=== PATIENT | male | born 1960 | race Caucasian/White ===

== ENCOUNTER 2018-03-27 13:34 | Inpatient (IN) | payer BC ==
[2018-03-27] MEDS ORDERED: DILTIAZEM DRIP BOLUS FROM BAG 1 MG SOLN IV ONE (14:02)
--- NOTE | 2018-03-27 14:07 | ED ---
General Adult HPI - General Chief complaint: Arrhythmia/Palpitations Stated complaint: AFIB Time Seen by Provider: 03/27/18 13:40 Source: patient, RN notes reviewed Mode of arrival: ambulatory Limitations: no limitations - History of Present Illness Initial comments: This is a 57-year-old male with past mental history significant for atrial fibrillation. Patient states in the past she's converted has not gone home on any medication and he has not been on any blood thinners. Patient states he only takes aspirin. Patient states a little bit after noon today he felt his heart start to race and he felt the same as atrial fibrillation. Patient gives all the time it didn't go away so he decided come to the emergency department. Patient denies any chest pain patient denies any difficulty breathing or shortness of breath. Patient denies any recent fever chills or cough. Patient denies abdominal pain patient denies nausea vomiting diarrhea. Patient denies any leg swelling or calf pain. - Related Data Home Medications Medication Instructions Recorded Confirmed Aspirin 325 mg PO HS 03/27/18 03/27/18 Ezetimibe/Simvastatin [Vytorin 1 tab PO HS 03/27/18 03/27/18 10-40 mg Tablet] Allergies Allergy/AdvReac Type Severity Reaction Status Date / Time No Known Allergies Allergy Verified 03/27/18 14:01 Review of Systems ROS Statement: Those systems with pertinent positive or pertinent negative responses have been documented in the HPI. ROS Other: All systems not noted in ROS Statement are negative. Past Medical History Past Medical History: Atrial Fibrillation, Hyperlipidemia History of Any Multi-Drug Resistant Organisms: None Reported Past Surgical History: Tonsillectomy Additional Past Surgical History / Comment(s): right hand surgery Past Psychological History: No Psychological Hx Reported Smoking Status: Never smoker Past Alcohol Use History: None Reported Past Drug Use History: None Reported General Exam - General Exam Comments Initial Comments: GENERAL: Patient is well-developed and well-nourished. Patient is nontoxic and well- hydrated and is in mild distress. ENT: Neck is soft and supple. No significant lymphadenopathy is noted. Oropharynx is clear. Moist mucous membranes. Neck has full range of motion without eliciting any pain. EYES: The sclera were anicteric and conjunctiva were pink and moist. Extraocular movements were intact and pupils were equal round and reactive to light. Eyelids were unremarkable. PULMONARY: Unlabored respirations. Good breath sounds bilaterally. No audible rales rhonchi or wheezing was noted. CARDIOVASCULAR: Patient has irregular rate and rhythm ABDOMEN: Soft and nontender with normal bowel sounds. No palpable organomegaly was noted. There is no palpable pulsatile mass. SKIN: Skin is clear with no lesions or rashes and otherwise unremarkable. NEUROLOGIC: Patient is alert and oriented x3. Cranial nerves II through XII are grossly intact. Motor and sensory are also intact. Normal speech, volume and content. Symmetrical smile. MUSCULOSKELETAL: Normal extremities with adequate strength and full range of motion. No lower extremity swelling or edema. No calf tenderness. LYMPHATICS: No significant lymphadenopathy is noted PSYCHIATRIC: Normal psychiatric evaluation. Limitations: no limitations Course Vital Signs 03/27/18 03/27/18 03/27/18 13:38 14:24 14:35 Temperature 98.6 F Pulse Rate 78 149 H 158 H Respiratory 16 20 18 Rate Blood Pressure 120/72 120/101 101/69 O2 Sat by Pulse 100 100 99 Oximetry 03/27/18 03/27/18 03/27/18 14:42 14:53 15:45 Temperature Pulse Rate 124 H 131 H 124 H Respiratory 22 22 18 Rate Blood Pressure 105/75 124/76 119/102 O2 Sat by Pulse 100 100 Oximetry Medical Decision Making - Medical Decision Making EKG shows atrial fibrillation with rapid ventricular results at 158 bpm QRS is 86 QT interval is 292 QTC is 473. No ST segment elevation or depression or T wave abnormalities are noted. Chest x-ray showed no acute abnormality. Patient was placed on Cardizem and was given heart rate did not come down initially. Patient was started on heparin as well. I spoke with Dr. ambrocio he agreed to admit the patient admitted the patient I wrote admitting orders I consult cardiology. I continue the heparin as well as the Cardizem drip on the floor. - Lab Data Result diagrams: 03/27/18 14:00 03/27/18 14:00 Lab Results 03/27/18 03/27/18 03/27/18 Range/Units 14:00 14:00 14:00 WBC 7.4 (3.8-10.6) k/uL RBC 5.34 (4.30-5.90) m/uL Hgb 15.8 (13.0-17.5) gm/dL Hct 46.6 (39.0-53.0) % MCV 87.2 (80.0-100.0) fL MCH 29.6 (25.0-35.0) pg MCHC 34.0 (31.0-37.0) g/dL RDW 13.0 (11.5-15.5) % Plt Count 237 (150-450) k/uL Neutrophils % 75 % Lymphocytes % 16 % Monocytes % 6 % Eosinophils % 1 % Basophils % 1 % Neutrophils # 5.6 (1.3-7.7) k/uL Lymphocytes # 1.2 (1.0-4.8) k/uL Monocytes # 0.5 (0-1.0) k/uL Eosinophils # 0.1 (0-0.7) k/uL Basophils # 0.0 (0-0.2) k/uL PT (9.0-12.0) sec INR (<1.2) APTT (22.0-30.0) sec Sodium 142 (137-145) mmol/L Potassium 4.3 (3.5-5.1) mmol/L Chloride 107 (98-107) mmol/L Carbon Dioxide 22 (22-30) mmol/L Anion Gap 13 mmol/L BUN 25 H (9-20) mg/dL Creatinine 1.00 (0.66-1.25) mg/dL Est GFR (CKD-EPI)AfAm >90 (>60 ml/min/1.73 sqM) Est GFR (CKD-EPI)NonAf 83 (>60 ml/min/1.73 sqM) Glucose 126 H (74-99) mg/dL Calcium 10.2 (8.4-10.2) mg/dL Magnesium 1.9 (1.6-2.3) mg/dL Total Bilirubin 1.1 (0.2-1.3) mg/dL AST 39 (17-59) U/L ALT 43 (21-72) U/L Alkaline Phosphatase 58 (38-126) U/L Total Creatine Kinase 161 (55-170) U/L CK-MB (CK-2) 1.7 (0.0-2.4) ng/mL CK-MB (CK-2) Rel Index 1.1 Troponin I <0.012 (0.000-0.034) ng/mL Total Protein 7.7 (6.3-8.2) g/dL Albumin 5.0 (3.5-5.0) g/dL TSH 3.600 (0.465-4.680) mIU/L Free T4 1.61 (0.78-2.19) ng/dL Urine Opiates Screen (NotDetected) Ur Oxycodone Screen (NotDetected) Urine Methadone Screen (NotDetected) Ur Propoxyphene Screen (NotDetected) Ur Barbiturates Screen (NotDetected) U Tricyclic Antidepress (NotDetected) Ur Phencyclidine Scrn (NotDetected) Ur Amphetamines Screen (NotDetected) U Methamphetamines Scrn (NotDetected) U Benzodiazepines Scrn (NotDetected) Urine Cocaine Screen (NotDetected) U Marijuana (THC) Screen (NotDetected) 03/27/18 03/27/18 Range/Units 14:00 15:12 WBC (3.8-10.6) k/uL RBC (4.30-5.90) m/uL Hgb (13.0-17.5) gm/dL Hct (39.0-53.0) % MCV (80.0-100.0) fL MCH (25.0-35.0) pg MCHC (31.0-37.0) g/dL RDW (11.5-15.5) % Plt Count (150-450) k/uL Neutrophils % % Lymphocytes % % Monocytes % % Eosinophils % % Basophils % % Neutrophils # (1.3-7.7) k/uL Lymphocytes # (1.0-4.8) k/uL Monocytes # (0-1.0) k/uL Eosinophils # (0-0.7) k/uL Basophils # (0-0.2) k/uL PT 10.7 (9.0-12.0) sec INR 1.0 (<1.2) APTT 26.5 (22.0-30.0) sec Sodium (137-145) mmol/L Potassium (3.5-5.1) mmol/L Chloride (98-107) mmol/L Carbon Dioxide (22-30) mmol/L Anion Gap mmol/L BUN (9-20) mg/dL Creatinine (0.66-1.25) mg/dL Est GFR (CKD-EPI)AfAm (>60 ml/min/1.73 sqM) Est GFR (CKD-EPI)NonAf (>60 ml/min/1.73 sqM) Glucose (74-99) mg/dL Calcium (8.4-10.2) mg/dL Magnesium (1.6-2.3) mg/dL Total Bilirubin (0.2-1.3) mg/dL AST (17-59) U/L ALT (21-72) U/L Alkaline Phosphatase (38-126) U/L Total Creatine Kinase (55-170) U/L CK-MB (CK-2) (0.0-2.4) ng/mL CK-MB (CK-2) Rel Index Troponin I (0.000-0.034) ng/mL Total Protein (6.3-8.2) g/dL Albumin (3.5-5.0) g/dL TSH (0.465-4.680) mIU/L Free T4 (0.78-2.19) ng/dL Urine Opiates Screen Not Detected (NotDetected) Ur Oxycodone Screen Not Detected (NotDetected) Urine Methadone Screen Not Detected (NotDetected) Ur Propoxyphene Screen Not Detected (NotDetected) Ur Barbiturates Screen Not Detected (NotDetected) U Tricyclic Antidepress Not Detected (NotDetected) Ur Phencyclidine Scrn Not Detected (NotDetected) Ur Amphetamines Screen Not Detected (NotDetected) U Methamphetamines Scrn Not Detected (NotDetected) U Benzodiazepines Scrn Not Detected (NotDetected) Urine Cocaine Screen Not Detected (NotDetected) U Marijuana (THC) Screen Not Detected (NotDetected) Critical Care Time Critical Care Time: Yes Total Critical Care Time: 35 Disposition Clinical Impression: Atrial fibrillation with rapid ventricular response Disposition: ADMITTED IP TO THIS HOSP Referrals: Fredrick Blakely DO [Primary Care Provider] - 1-2 days Time of Disposition: 15:48
[2018-03-27 14:29] LABS: Basophils % (A) 1 %; Eosinophils # (A) 0.1 k/uL (0-0.7); Eosinophils % (A) 1 %; HCT 46.6 % (39.0-53.0); HGB 15.8 gm/dL (13.0-17.5); Lymphocytes # (A) 1.2 k/uL (1.0-4.8); Lymphocytes % (A) 16 %; MCH 29.6 pg (25.0-35.0); MCV 87.2 fL (80.0-100.0); Mean Platelet Volume 7.8; Monocytes # (A) 0.5 k/uL (0-1.0); Monocytes % (A) 6 %; Neutrophils # (A) 5.6 k/uL (1.3-7.7); Neutrophils % (A) 75 %; Platelet Count 237 k/uL (150-450); RBC 5.34 m/uL (4.30-5.90); WBC 7.4 k/uL (3.8-10.6)
[2018-03-27] MEDS: DILTIAZEM 50 MG in SODIUM CHLORIDE 0.9% 40 ML IV SCH ×3 (14:36→23:28)
[2018-03-27 14:38] LABS: Partial Thromboplastin Time 26.5 sec (22.0-30.0); Prothrombin Time 10.7 sec (9.0-12.0)
[2018-03-27 14:41] LABS: ALT 43 U/L (21-72); AST 39 U/L (17-59); Alkaline Phosphatase 58 U/L (38-126); Anion Gap 13 mmol/L; Blood Urea Nitrogen 25 mg/dL (9-20); Calcium 10.2 mg/dL (8.4-10.2); Carbon Dioxide 22 mmol/L (22-30); Chloride 107 mmol/L (98-107); Glucose 126 mg/dL (74-99); Magnesium 1.9 mg/dL (1.6-2.3); Potassium 4.3 mmol/L (3.5-5.1); Sodium 142 mmol/L (137-145); Total Bilirubin 1.1 mg/dL (0.2-1.3); Total Protein 7.7 g/dL (6.3-8.2)
[2018-03-27 14:51] LABS: Creatine Kinase 161 U/L (55-170)
[2018-03-27 14:57] LABS: T4, Free (Free Thyroxine) 1.61 ng/dL (0.78-2.19)
[2018-03-27] MEDS ORDERED: SODIUM CHLORIDE 0.9% 500 ML 500 ML IV STA ×2 (14:57→15:58)
[2018-03-27 15:03] LABS: Creatine Kinase MB 1.7 ng/mL (0.0-2.4); Troponin I <0.012 ng/mL (0.000-0.034)
--- NOTE | 2018-03-27 15:25 | XR ---
EXAMINATION TYPE: XR chest 2V DATE OF EXAM: 03/27/2018 COMPARISON: 09/08/2011 HISTORY: Shortness of breath TECHNIQUE: Frontal and lateral views of the chest are obtained. FINDINGS: Scattered senescent parenchymal changes noted. Hyperinflation compatible with COPD. No evidence for infiltrate. No evidence for atelectasis. Heart size is stable. Mediastinal structures are stable and grossly unremarkable. No evidence for hilar prominence. Degenerative changes dorsal spine. IMPRESSION: 1. No evidence for acute pulmonary disease.
[2018-03-27 15:33] LABS: Amphetamine Screen,Urine Not Detected (NotDetected); Barbiturate Screen,Urine Not Detected (NotDetected); Benzodiazepines Screen,Urine Not Detected (NotDetected); Cocaine Screen,Urine Not Detected (NotDetected); Methadone Screen, Urine Not Detected (NotDetected); Opiate Screen,Urine Not Detected (NotDetected); Oxycodone Screen, Urine Not Detected (NotDetected); Phencyclidine Screen,Urine Not Detected (NotDetected); Tricyclic Antidepressant,Urine Not Detected (NotDetected); Urn Cannabinoid Scrn Not Detected (NotDetected)
[2018-03-27] MEDS ORDERED: HEPARIN SODIUM,PORCINE 5,000 UNIT/ML 1 ML VIAL IV ONE (15:45)
[2018-03-27] MEDS ORDERED: HEPARIN SOD,PORK IN 0.45% NACL 25,000 UNIT in 0.45% NACL 1 250ML.BAG IV SCH (15:45)
[2018-03-27] MEDS ORDERED: NITROGLYCERIN SL TABS 0.4 MG TAB SUBLINGUAL PRN (15:58)
[2018-03-27] MEDS: NITROGLYCERIN OINT 1 INCH/GM PACKET TOPICAL SCH ×2 (17:51→23:33)
[2018-03-27] MEDS: EZETIMIBE 10 MG TAB PO SCH ×2 (20:45→20:48)
[2018-03-27] MEDS: ATORVASTATIN 20 MG TAB PO SCH ×2 (20:45→20:47)
[2018-03-27] MEDS ORDERED: ASPIRIN 325 MG TAB PO SCH (21:00)
[2018-03-27] MEDS ORDERED: TEMAZEPAM 15 MG CAP PO PRN (22:21)
[2018-03-27] MEDS ORDERED: ALPRAZolam 0.25 MG TAB PO PRN (22:21)
[2018-03-27 22:39] LABS: Creatine Kinase 126 U/L (55-170)
[2018-03-27 22:53] LABS: Creatine Kinase MB 1.2 ng/mL (0.0-2.4); Troponin I <0.012 ng/mL (0.000-0.034)
--- NOTE | 2018-03-27 22:53 | HP ---
HISTORY AND PHYSICAL I am covering for Dr. Blakely. DATE OF SERVICE: 03/27/2018 CHIEF COMPLAINT: Palpitations and atrial fibrillation. HISTORY OF PRESENT ILLNESS: This 57-year-old gentleman with a past medical history of multiple medical problems, history of atrial fibrillation, hyperlipidemia, being followed by Dr. Blakely. The patient was complaining of having significant stress at home associated with taking care of her dad, currently the patient took out the trash and subsequently patient had palpitation, weakness, and the patient came to [facility] and the patient was admitted to the hospital for further evaluation and treatment. The patient started on Cardizem and heparin. Patient admitted for further evaluation and treatment. Previously the patient had 2 episodes of atrial fibrillation, both reverted to normal sinus rhythm within 14 hours according to him. There is no history of chest pain, headache, loss of consciousness or seizures at this time. PAST MEDICAL HISTORY: History of atrial ablation, hyperlipidemia. Previous sepsis episodes are in 2010 and 2011. MEDICATIONS: Home medications were aspirin 320 mg q.h.s. and Vytorin 10/40 p.o. q.h.s. ALLERGIES: None. FAMILY HISTORY: History of CAD, CVA/TIA, hypertension, myocardial infarction, CABG. SOCIAL HISTORY: No history of smoking. No history of alcohol. REVIEW OF SYSTEMS: ENT: No diminished hearing or vision. CARDIOVASCULAR: As mentioned above. RESPIRATORY: As mentioned earlier. GI: No nausea or vomiting. : No dysuria. NERVOUS SYSTEM: No numbness or weakness. ALLERGY/IMMUNOLOGY: No history of asthma or hayfever. MUSCULOSKELETAL: As mentioned earlier. HEMATOLOGY/ONCOLOGY: No history of anemia. ENDOCRINE: No history of diabetes or hypothyroidism. CONSTITUTIONAL: As mentioned earlier. Dermatology: Negative. Rheumatology: Negative. Psychiatry: As mentioned earlier. PHYSICAL EXAMINATION: Alert oriented x3. Pulse is 140. Irregular. Blood pressure 135/83, respiratory 20, temperature 98 degrees, pulse ox 98% on 2 L. HEENT: Conjunctivae normal. Oral mucosa moist. Neck is no jugular venous distention. No carotid bruit. No lymph node enlargement. Cardiovascular: S1, S2 irregular. No murmurs. No thrills. RESPIRATORY: Breath sounds diminished in the bases. No rhonchi. No crackles. ABDOMEN: Soft, nontender. No mass palpable. LEGS: No edema. No swelling. NERVOUS SYSTEM: Higher functions as mentioned. Moves all 4 limbs. No focal motor or sensory deficits. Lymphatics: No lymph nodes palpable in the neck, axillae or groin. SKIN: No ulcer, no rash or bleeding. LAB STUDIES: WBC 11.7, hemoglobin 15.8, sodium 142, potassium 4.3, glucose 126. ASSESSMENT: 1. Paroxysmal atrial fibrillation with fast ventricular rate. 2. History of atrial fibrillation. 3. Increased random blood sugar. 4. History of hyperlipidemia. RECOMMENDATIONS AND DISCUSSION: In this 57-year-old gentleman who presented with multiple complex medical issues, we will monitor the patient closely. Continue the current medications, Cardizem drip and heparin drip. Resume the home medications. Also recommend cardiology evaluation, 2D echo with Doppler. TSH and free T4 is normal. Prognosis guarded because of multiple complex medical issues. Symptomatic treatment also provided. A copy being forwarded to Dr. Blakely who is the primary physician. MMODL / IJN: [id number] /
[2018-03-27 23:45] LABS: Appearance,Urine Clear (Clear); Bilirubin,Urine Negative (Negative); Blood,Urine Negative (Negative); Color,Urine Yellow; Glucose,Urine (UA) Negative (Negative); Ketones,Urine Negative (Negative); Leukocyte Esterase,Urine Negative (Negative); Nitrite,Urine Negative (Negative); PH, Urine 5.5 (5.0-8.0); Protein,Urine Negative (Negative); Specific Gravity,Urine 1.017 (1.001-1.035); Urobilinogen,Urine <2.0 mg/dL (<2.0)
[2018-03-28 02:27] LABS: Creatine Kinase 121 U/L (55-170)
[2018-03-28 02:40] LABS: Creatine Kinase MB 1.1 ng/mL (0.0-2.4); Troponin I <0.012 ng/mL (0.000-0.034)
[2018-03-28] MEDS: NITROGLYCERIN OINT 1 INCH/GM PACKET TOPICAL SCH ×2 (05:15→12:59)
[2018-03-28 05:55] LABS: Basophils # (A) 0.1 k/uL (0-0.2); Basophils % (A) 1 %; Eosinophils # (A) 0.1 k/uL (0-0.7); Eosinophils % (A) 2 %; HCT 41.7 % (39.0-53.0); HGB 13.5 gm/dL (13.0-17.5); Lymphocytes # (A) 1.7 k/uL (1.0-4.8); Lymphocytes % (A) 28 %; MCH 28.7 pg (25.0-35.0); MCHC 32.3 g/dL (31.0-37.0); Mean Platelet Volume 7.4; Monocytes # (A) 0.4 k/uL (0-1.0); Monocytes % (A) 6 %; Neutrophils # (A) 3.7 k/uL (1.3-7.7); Neutrophils % (A) 61 %; Platelet Count 213 k/uL (150-450); RBC 4.69 m/uL (4.30-5.90); RDW 13.1 % (11.5-15.5)
[2018-03-28 06:06] LABS: Anion Gap 7 mmol/L; Blood Urea Nitrogen 21 mg/dL (9-20); Calcium 9.3 mg/dL (8.4-10.2); Carbon Dioxide 27 mmol/L (22-30); Chloride 109 mmol/L (98-107); Cholesterol 119 mg/dL (<200); Glucose 86 mg/dL (74-99); HDL Cholesterol 42 mg/dL (40-60); LDL Cholesterol,Calculated 66 mg/dL (0-99); Potassium 4.2 mmol/L (3.5-5.1); Sodium 143 mmol/L (137-145); Triglycerides 53 mg/dL (<150)
[2018-03-28] MEDS ORDERED: PANTOPRAZOLE 40 MG TABLET PO SCH (07:30)
[2018-03-28] MEDS ORDERED: ASPIRIN 325 MG TAB PO SCH (09:00)
[2018-03-28 09:03] VITALS: RESP 18
[2018-03-28 11:52] VITALS: BP 118/69; PULSE 73; TEMP 97.9
--- NOTE | 2018-03-28 12:26 | P.CRDCN ---
History of Present Illness Consult date: 03/28/18 Requesting physician: Lawrence E Sheet Consult reason: atrial fibrillation Chief complaint: Palpitations History of present illness: This is a pleasant 57-year-old gentleman with history of 2 prior episodes of atrial fibrillation, no diabetes, no hypertension, hyperlipidemia, on Vytorin, he is a nonsmoker, presents to the hospital with symptoms of palpitations and feeling his heart racing. He states that he knew he was in atrial fibrillation because he has had these episodes twice in the past. Each time he converted with medications. According to the patient he's been under a significant amount of stress recently with his father. EKG on admission here showed atrial fibrillation with a rapid ventricular response, patient was initiated on IV Cardizem and IV heparin in the emergency room and his symptoms converted to normal sinus rhythm, he continues to be in normal sinus rhythm at the time of my examination. Chest x-ray does not reveal any evidence for acute pulmonary disease. Blood pressure 118/68, heart rate in the 70s, 99% on room air. White blood cell count 6.0, hemoglobin 13.5, platelet count 213. Sodium 143, potassium 4.2, BUN 21, creatinine 0.8. Troponins are negative 3 and the TSH is normal. Patient does follow with a brickmason at [facility]. Patient's home medications include 325 mg of aspirin and Vytorin. Past Medical History Past Medical History: Atrial Fibrillation, Hyperlipidemia Additional Past Medical History / Comment(s): fist episode of afib and again in History of Any Multi-Drug Resistant Organisms: None Reported Past Surgical History: Tonsillectomy Additional Past Surgical History / Comment(s): right hand surgery d/t dupuytrens , rt eye lid sx for chalazion (cyst) Past Anesthesia/Blood Transfusion Reactions: No Reported Reaction Additional Past Anesthesia/Blood Transfusion Reaction / Comment(s): jhas never recieved any blood transfusion Smoking Status: Never smoker - Past Family History Mother Family Medical History: Coronary Artery Disease (CAD), CVA/TIA, Hypertension, Myocardial Infarction ([place]) Father Family Medical History: Congestive Heart Failure (CHF), Coronary Artery Disease (CAD), Osteoarthritis (OA) Additional Family Medical History / Comment(s): cabg Medications and Allergies Home Medications Medication Instructions Recorded Confirmed Type Aspirin 325 mg PO HS 03/27/18 03/27/18 History Ezetimibe/Simvastatin [Vytorin 1 tab PO HS 03/27/18 03/27/18 History 10-40 mg Tablet] Allergies Allergy/AdvReac Type Severity Reaction Status Date / Time No Known Allergies Allergy Verified 03/27/18 14:01 Physical Exam Vitals: Vital Signs Temp Pulse Pulse Resp BP BP Pulse Ox 03/28/18 11:51 97.9 F 73 18 118/69 99 03/28/18 08:00 97.6 F 70 18 120/66 100 03/28/18 04:00 57 L 18 108/68 100 03/28/18 00:00 70 18 105/62 99 03/27/18 20:00 83 18 118/62 100 03/27/18 17:20 98 F 120 H 20 134/83 99 03/27/18 16:24 140 H 03/27/18 16:00 128 H 18 107/77 100 03/27/18 15:56 147 H 18 94/62 100 03/27/18 15:45 124 H 18 119/102 03/27/18 14:53 131 H 22 124/76 100 03/27/18 14:42 124 H 22 105/75 100 03/27/18 14:35 158 H 18 101/69 99 03/27/18 14:24 149 H 20 120/101 100 03/27/18 13:38 98.6 F 78 16 120/72 100 Intake and Output 03/27/18 03/28/18 03/28/18 22:59 06:59 14:59 Intake Total 65.333 44.25 240 Output Total 300 Balance 65.333 -255.75 240 Intake: Intake, IV Titration 65.333 44.25 Amount Diltiazem 50 mg In Sodium 44.25 Chloride 0.9% 40 ml @ 5 MG/HR 5 mls/hr IV .Q10H BRIANNE Rx#:[id number] Heparin Sod,Pork in 0.45% 65.333 NaCl 25,000 unit In 0.45 % NaCl 1 250ml.bag @ 9. 586 UNITS/KG/HR 10 mls/hr IV .Q24H BRIANNE Rx#: [id number] Oral 240 Output: Urine 300 Other: Voiding Method Toilet Toilet # Voids 1 1 Weight 106.6 kg PHYSICAL EXAMINATION: GENERAL: 57-year-old gentleman in no acute distress at the time of my examination HEENT: Head is atraumatic, normocephalic. Pupils equal, round. Sclera anicteric. Conjunctiva are clear. Mucous membranes of the mouth are moist. Neck is supple. There is no elevated jugular venous pressure. No carotid bruit is heard. HEART EXAMINATION: Heart S1, S2 normal. No murmur or gallop heard. CHEST EXAMINATION: Lungs are clear to auscultation and precussion. No chest wall tenderness is noted on palpation or with deep breathing. ABDOMEN: Soft, nontender. Bowel sounds are heard. No organomegaly noted. EXTREMITIES: 2+ peripheral pulses with no evidence of peripheral edema and no calf tenderness noted. NEUROLOGIC patient is awake, alert and oriented 3 . . Results 03/28/18 05:47 03/28/18 05:47 Cardiac Enzymes 03/27/18 03/27/18 03/27/18 Range/Units 14:00 14:00 21:34 AST 39 (17-59) U/L CK-MB (CK-2) 1.7 1.2 (0.0-2.4) ng/mL Troponin I <0.012 <0.012 (0.000-0.034) ng/mL 03/28/18 Range/Units 01:35 AST (17-59) U/L CK-MB (CK-2) 1.1 (0.0-2.4) ng/mL Troponin I <0.012 (0.000-0.034) ng/mL Coagulation 03/27/18 03/27/18 03/28/18 Range/Units 14:00 21:34 05:47 PT 10.7 (9.0-12.0) sec APTT 26.5 45.9 H 61.6 H (22.0-30.0) sec Lipids 03/28/18 Range/Units 05:47 Triglycerides 53 (<150) mg/dL Cholesterol 119 (<200) mg/dL HDL Cholesterol 42 (40-60) mg/dL CBC 03/27/18 03/28/18 Range/Units 14:00 05:47 WBC 7.4 6.0 (3.8-10.6) k/uL RBC 5.34 4.69 (4.30-5.90) m/uL Hgb 15.8 13.5 (13.0-17.5) gm/dL Hct 46.6 41.7 (39.0-53.0) % Plt Count 237 213 (150-450) k/uL Comprehensive Metabolic Panel 03/27/18 03/28/18 Range/Units 14:00 05:47 Sodium 142 143 (137-145) mmol/L Potassium 4.3 4.2 (3.5-5.1) mmol/L Chloride 107 109 H (98-107) mmol/L Carbon Dioxide 22 27 (22-30) mmol/L BUN 25 H 21 H (9-20) mg/dL Creatinine 1.00 0.89 (0.66-1.25) mg/dL Glucose 126 H 86 (74-99) mg/dL Calcium 10.2 9.3 (8.4-10.2) mg/dL AST 39 (17-59) U/L ALT 43 (21-72) U/L Alkaline Phosphatase 58 (38-126) U/L Total Protein 7.7 (6.3-8.2) g/dL Albumin 5.0 (3.5-5.0) g/dL Current Medications Generic Name Dose Route Start Last Admin Trade Name Freq PRN Reason Stop Dose Admin Alprazolam 0.25 mg 03/27/18 22:21 Xanax PO TID PRN Anxiety Aspirin 325 mg 03/27/18 21:00 03/27/18 20:45 Aspirin PO 325 mg HS BRIANNE Administration Atorvastatin Calcium 20 mg 03/27/18 21:00 03/27/18 20:47 Lipitor PO Not Given HS BRIANNE Ezetimibe 10 mg 03/27/18 21:00 03/27/18 20:48 Zetia PO Not Given HS BRIANNE Diltiazem HCl 50 mg/ Sodium 50 mls @ 5 mls/hr 03/27/18 14:15 03/27/18 23:28 Chloride IV 5 mg/hr .Q10H BRIANNE 5 mls/hr Administration 5 MG/HR Heparin Sodium/Sodium Chloride 250 mls @ 10 mls/hr 03/27/18 15:45 03/27/18 22 :53 25,000 unit/ Sodium Chloride IV 11.5 units/kg/hr .Q24H BRIANNE 12 mls/hr Titration Protocol 9.586 UNITS/KG/HR Nitroglycerin 1 inch 03/27/18 18:00 03/28/18 05:15 Nitro-Bid Oint TOPICAL Not Given Q6HR [facility] Nitroglycerin 0.4 mg 03/27/18 15:58 Nitrostat SUBLINGUAL Q5M PRN Chest Pain Pantoprazole Sodium 40 mg 03/28/18 07:30 03/28/18 06:11 Protonix PO 40 mg AC-BRKFST BRIANNE Administration Temazepam 15 mg 03/27/18 22:21 Restoril PO HS PRN Insomnia Intake and Output 03/27/18 03/28/18 03/28/18 22:59 06:59 14:59 Intake Total 65.333 44.25 240 Output Total 300 Balance 65.333 -255.75 240 Intake: Intake, IV Titration 65.333 44.25 Amount Diltiazem 50 mg In Sodium 44.25 Chloride 0.9% 40 ml @ 5 MG/HR 5 mls/hr IV .Q10H BRIANNE Rx#:[id number] Heparin Sod,Pork in 0.45% 65.333 NaCl 25,000 unit In 0.45 % NaCl 1 250ml.bag @ 9. 586 UNITS/KG/HR 10 mls/hr IV .Q24H BRIANNE Rx#: [id number] Oral 240 Output: Urine 300 Other: Voiding Method Toilet Toilet # Voids 1 1 Weight 106.6 kg 03/28/18 05:47 03/28/18 05:47 EKG Interpretations (text) Initial EKG showed atrial fibrillation with rapid ventricular response, subsequent EKG shows normal sinus rhythm Assessment and Plan Plan: Assessment and plan #1 atrial fibrillation with rapid ventricular response, paroxysmal, patient currently in normal sinus rhythm. #2 hyperlipidemia #3 2 prior episodes of atrial fibrillation, most recent being 6 years ago Plan TSH level is normal, we will obtain an echocardiogram with Doppler study. Discontinue IV heparin and IV Cardizem. If the LV function is normal, patient should be able to be discharged home today to follow-up with his brickmason post discharge. DNP note has been reviewed, I agree with a documented findings and plan of care. Patient was seen and examined.
--- NOTE | 2018-03-29 10:40 | DS ---
DISCHARGE SUMMARY DATE OF SERVICE: 03/28/2018. I am covering for Dr. Blakely. FINAL DIAGNOSES: 1. Paroxysmal atrial fibrillation with fast ventricular rate converted to normal sinus rhythm. 2. History of proximal atrial fibrillation. 3. Increased random blood sugars. 4. History of hyperlipidemia. DISCHARGE DISPOSITION: The patient will be discharged in stable condition with guarded prognosis. HISTORY OF PRESENT ILLNESS: This 57-year-old with a past history of multiple medical problems as mentioned being followed by Dr. Blakely in the outpatient setting was admitted with paroxysmal atrial fibrillation. Patient treated with Cardizem and heparin. Patient improved significant. 2D echo was reviewed by Cardiology. Cardiology cleared the patient for discharge. EXAM: Vitals are stable. Cardiovascular: Irregular. Respiratory: No rhonchi, no crackles. Abdomen: Soft. Nervous System: No focal deficits. DISCHARGE ADVICE AND MEDICATIONS: 1. Diet is cardiac. 2. Activity limited until follow up. 3. Follow up with Dr. Blakely in 2-3 days. 4. Follow with Cardiology as recommended. 5. Medications: Ecotrin 325 mg q.h.s. 6. Vytorin 10/40 p.o. q.h.s. MMODL / IJN: [id number] /
--- NOTE | 2018-03-29 17:20 | ECHOF ---
Referral Reason:afib MEASUREMENTS -------- HEIGHT: 188.0 cm WEIGHT: 106.6 kg BP: 118/69 RVIDd: 3.0 cm (< 3.3) IVSd: 1.2 cm (0.6 - 1.1) LVIDd: 4.2 cm (3.9 - 5.3) LVPWd: 1.1 cm (0.6 - 1.1) IVSs: 1.6 cm LVIDs: 3.0 cm LVPWs: 1.5 cm LA Diam: 3.4 cm (2.7 - 3.8) Ao Diam: 3.4 cm (2.0 - 3.7) AV Cusp: 2.2 cm (1.5 - 2.6) EPSS: 0.2 cm MV E Patrick: 1.01 m/s MV DecT: 189 ms MV A Patrick: 0.51 m/s MV E/A Ratio: 1.97 RAP: 15.00 mmHg RVSP: 42.00 mmHg MV EF SLOPE: 133.77 mm/s (70 - 150) MV EXCURSION: 2.36 cm (> 18.000) FINDINGS -------- Sinus rhythm. This was a technically adequate study. The left ventricular size is normal. There is borderline concentric left ventricular hypertrophy. Overall left ventricular systolic function is normal with, an EF between 55 - 60 %. The right ventricle is normal in size. Normal LA size by volume 22+/-6 ml/m2. The right atrium is normal in size. The aortic valve is trileaflet and appears structurally normal. The mitral valve is normal. Mild tricuspid regurgitation present. There is mild pulmonary hypertension. The right ventricular systolic pressure, as measured by Doppler, is 42.00mmHg. Trace/mild (physiologic) pulmonic regurgitation. The aortic root size is normal. The inferior vena cava is dilated with no significant inspiratory collapse which is consistent estima britany right atrial pressure of >20 mmHg. There is no pericardial effusion. CONCLUSIONS -------- 1. Sinus rhythm. 2. This was a technically adequate study. 3. The left ventricular size is normal. 4. There is borderline concentric left ventricular hypertrophy. 5. Overall left ventricular systolic function is normal with, an EF between 55 - 60 %. 6. The right ventricle is normal in size. 7. Normal LA size by volume 22+/-6 ml/m2. 8. The right atrium is normal in size. 9. The aortic valve is trileaflet and appears structurally normal. 10. The mitral valve is normal. 11. Mild tricuspid regurgitation present. 12. There is mild pulmonary hypertension. 13. The right ventricular systolic pressure, as measured by Doppler, is 42.00mmHg. 14. Trace/mild (physiologic) pulmonic regurgitation. 15. The aortic root size is normal. 16. The inferior vena cava is dilated with no significant inspiratory collapse which is consistent es timated right atrial pressure of >20 mmHg. 17. There is no pericardial effusion. [facility] ATTENDANT: DAISY Stephen
== END 2018-03-28 16:05 | disposition home or self-care (01) | DRG 310 ==
LOC: EC 13:34 → 3SCARD 16:01
PROVIDERS: ADMIT Internal Medicine; ATTEND Internal Medicine
DX: I48.0 Paroxysmal atrial fibrillation (principal); E78.5 Hyperlipidemia, unspecified; Z79.82 Long term (current) use of aspirin; Z82.49 Family history of ischemic heart disease and other diseases of the circulatory system
CPT/HCPCS: 36415; 71046; 80048; 80053; 80061; 80306; 81003; 82550; 82553; 83735; 84439; 84443; 84484; 85025; 85610; 85730; 93005; 93306; 96361; 96365; 96375; 96376; 99291

== ENCOUNTER → 2022-01-07 | Outpatient (CLI) | payer BC ==
--- NOTE | 2022-01-07 17:59 | CA ---
Transthoracic Echo Report Name: Eliceo Marie Age: 61 Gender: M : 1960 Exam Date: 01/07/2022 13:49 Exam Location: [facility] Ht (in): 72 Wt (lb): 215 Ordering Physician: Ariana Weaver DO Attending/Referring Phys: Ariana Weaver DO Transitional Care Manager Lindsey Wagner RDCS Procedure CPT: Indications: I480 Cardiac Hx: Technical Quality: Good Contrast 1: Total Dose (mL): Contrast 2: Total Dose (mL): MEASUREMENTS (Male / Female) Normal Values 2D ECHO LV Diastolic Diameter PLAX 4.9 cm 4.2 - 5.9 / 3.9 - 5.3 cm LV Systolic Diameter PLAX 4.0 cm IVS Diastolic Thickness 0.9 cm 0.6 - 1.0 / 0.6 - 0.9 cm LVPW Diastolic Thickness 1.3 cm 0.6 - 1.0 / 0.6 - 0.9 cm LV Relative Wall Thickness 0.4 RV Internal Dim ED PLAX 2.8 cm LA Systolic Diameter LX 4.0 cm 3.0 - 4.0 / 2.7 - 3.8 cm LA Volume 55.6 cm??? 18 - 58 / 22 - 52 cm??? M-MODE Aortic Root Diameter MM 3.1 cm LA Systolic Diameter MM 4.0 cm LA Ao Ratio MM 1.3 MV E Point Septal Separation 1.1 cm AV Cusp Separation MM 1.9 cm DOPPLER MV Area PHT 5.0 cm??? Mitral E Point Velocity 70.3 cm/s Mitral A Point Velocity 42.1 cm/s Mitral E to A Ratio 1.7 MV Deceleration Time 150.4 ms MV E' Velocity 13.6 cm/s Mitral E to MV E' Ratio 5.1 TR Peak Velocity 258.6 cm/s TR Peak Gradient 26.8 mmHg Right Ventricular Systolic Press 31.8 mmHg FINDINGS Left Ventricle Left ventricular ejection fraction is estimated at 55-60 %. Right Ventricle Normal right ventricular size and function. Right ventricular systolic pressure within normal limits. Right Atrium Normal right atrial size. Left Atrium Normal left atrial size. Mitral Valve Structurally normal mitral valve. Mild mitral regurgitation. Aortic Valve Trileaflet aortic valve. Tricuspid Valve Structurally normal tricuspid valve. Pulmonic Valve Structurally normal pulmonic valve. Pericardium Normal pericardium. Aorta Normal size aortic root and proximal ascending aorta. CONCLUSIONS Normal left ventricular size and systolic function. No significant abnormality on the Doppler exam. There is mild mitral regurgitation. No pericardial effusion Previewed by: Dr. Oscar Beckham MD (Electronically Signed) Final Date: 07 January 2022 17:58
== END | disposition home or self-care (01) ==
LOC: RADECHMAIN 13:44
PROVIDERS: ATTEND Internal Medicine Clinical Cardiac Electrophysiology
DX: I48.0 Paroxysmal atrial fibrillation (principal)
CPT/HCPCS: 93306

== ENCOUNTER → 2022-02-11 | Outpatient (CLI) | payer BC ==
--- NOTE | 2022-02-11 12:01 | CA ---
Exercise Stress Test Report Name: Eliceo Marie Exam Date: 02/11/2022 10:43 Exam Location: [facility] Ht (in): 74 Wt (lb): 220 BSA: 2.26 Ordering Phys: Ariana Weaver DO Referring Phys: LOLIS, Technologist: Ivan Hernandes Age: 61 Gender: M : 1960 Procedure CPT: Indications: I47.29 tachycardia ICD-10 Codes: Patient History: DIFFICULTY IN BREATHING, PALPITATIONS, ELEVATED CHOLESTEROL, FAMILY HX OF HEART DISEASE Medications: METOPROLOL, VYTORIN, ASA, XANAX, PROPAFENONE, BURBERINE, TAURINE Meds past 24 hrs: Pretest Chest Pain: STRESS TEST [place] Protocol Exercise Duration (min:sec): 07:[address] Depressions (mm): Angina Score: Gonzales Score: Resting HR (bpm): 87 Peak HR (bpm): 147 Resting BP (mmHg): 155 / 77 Peak BP (mmHg): 172 / 74 MPHR: 159 Target HR: 135 % MPHR: 92 METS: 9.8 Total Dose: Peak Dose: Atropine: Double Product: 42349 BP Response: Stress Termination: Stress Symptoms: Stress Summary: ECG ANALYSIS Resting ECG: Stress ECG: CONCLUSIONS Patient underwent exercise stress EKG with a [place] protocol treadmill stress test. Patient exercised into Stage 3 for a total of 7 minutes and 30 seconds reaching a total of 9.8 METS. Patient's maximum heart rate was 147 which represented 92 % age- predicted maximum heart rate. Stress EKG findings: At baseline patient's EKG showed normal sinus rhythm, normal axis, no significant ST or T wave abnormalities. At peak exercise, EKG showed nonspecific [address] depressions in the inferior and lateral leads. Conclusions: 1. Equivocal EKG response to exercise with 1mm upsloping ST depressions at stress. Consider stress with imaging modality if clinically indicated. 2. Fair exercise capacity. Dr. Barrera Valente DO (Electronically Signed) Final Date: 11 February 2022 12:00
--- NOTE | 2022-02-11 12:36 | NM ---
EXAMINATION TYPE: NM stress cardiolite complete DATE OF EXAM: 02/11/2022 COMPARISON: NONE HISTORY: I47.29 tachycardia TECHNIQUE: After the intravenous administration of 8.5 mCi Tc 99m Sestamibi - Rest images obtained 5 5 minutes post injection. The patient exercised using a MICHELLE protocol and 1 minute prior to peak e xercise was injected with 24.4 mCi Tc 99m Sestamibi - Stress images obtained 32 minutes post injectio n. FINDINGS: Targeted heart rate was achieved during performance of the study. Review of stress and rest SPECT robert ges demonstrates decreased perfusion involving the cardiac apex on stress imaging. Stress-induced isc hemia is not excluded. Gated analysis shows normal wall motion with an estimated left ventricular eje ction fraction of 71 %. IMPRESSION: Small area of stress-induced ischemia suggested in the region of the cardiac apex.
== END | disposition home or self-care (01) ==
LOC: RADNMMAIN 07:56
PROVIDERS: ATTEND Internal Medicine Clinical Cardiac Electrophysiology
DX: I47.29 Other ventricular tachycardia (principal)
CPT/HCPCS: 93017; 78452; A9500

== ENCOUNTER 2022-03-01 16:04 | Inpatient (IN) | payer BC ==
[2022-03-01] MEDS ORDERED: NITROGLYCERIN SL TABS 0.4 MG TAB SUBLINGUAL STA ×2 (16:29→18:14)
[2022-03-01] MEDS ORDERED: ASPIRIN 81 MG PO STA (16:29)
--- NOTE | 2022-03-01 16:37 | ED ---
Chest Pain HPI - General Chief Complaint: Chest Pain Stated Complaint: Chest pain Time Seen by Provider: 03/01/22 16:08 Source: EMS Mode of arrival: EMS Limitations: no limitations - History of Present Illness Initial Comments: This patient is a 61-year-old man who presents to evaluation of left-sided chest pain. Patient states that it has been there since he had a stress test at the end of January. The patient notes that it was slightly worse today woke him up around 2 AM and he was not able to go back to sleep. The patient also has been seen about this pain other hospital in the past week. He states that he did have CT with coronary angiography. The patient has not had any anginal equivalent symptoms. MD Complaint: chest pain -: week(s) Onset: during rest Pain Location: left chest Severity: mild Quality: dull Consistency: constant Improves With: nothing Worsens With: nothing Treatments Prior to Arrival: none - Related Data Home Medications Medication Instructions Recorded Confirmed Aspirin 325 mg PO DAILY 03/27/18 03/01/22 Ezetimibe/Simvastatin [Vytorin 1 tab PO HS 03/27/18 03/01/22 10-40 mg Tablet] ALPRAZolam [Xanax] 0.25 mg PO DAILY PRN 03/01/22 03/01/22 Metoprolol Succinate [Metoprolol 25 mg PO HS 03/01/22 03/01/22 Succinate ER] Propafenone [Rythmol] 150 mg PO Q8H PRN 03/01/22 03/01/22 Previous Rx's Medication Instructions Recorded Naproxen [Naprosyn] 250 mg PO TID-W/MEALS #30 tab 03/02/22 Allergies Allergy/AdvReac Type Severity Reaction Status Date / Time No Known Allergies Allergy Verified 03/01/22 18:48 Review of Systems ROS Statement: Those systems with pertinent positive or pertinent negative responses have been documented in the HPI. ROS Other: All systems not noted in ROS Statement are negative. Constitutional: Denies: fever, chills Respiratory: Denies: cough, dyspnea Cardiovascular: Reports: chest pain. Denies: palpitations, orthopnea, edema, syncope Gastrointestinal: Denies: abdominal pain, nausea, vomiting, diarrhea Genitourinary: Denies: dysuria, hematuria Musculoskeletal: Denies: back pain Skin: Denies: rash Neurological: Denies: headache, weakness, numbness EKG Findings - EKG Results: EKG: interpreted by ERMD, sinus rhythm (Rate 71 bpm), normal axis, normal QRS - Blocks, Ferney, Hypertrophy, ST Abn: Repolarization changes or abnormalities: nonspecific abnormality, ST segment, and/or T wave Past Medical History Past Medical History: Atrial Fibrillation, Hyperlipidemia Additional Past Medical History / Comment(s): fist episode of afib and again in History of Any Multi-Drug Resistant Organisms: None Reported Past Surgical History: Tonsillectomy Additional Past Surgical History / Comment(s): right hand surgery d/t dupuytrens , rt eye lid sx for chalazion (cyst) Past Anesthesia/Blood Transfusion Reactions: No Reported Reaction Additional Past Anesthesia/Blood Transfusion Reaction / Comment(s): jhas never recieved any blood transfusion Past Psychological History: No Psychological Hx Reported Smoking Status: Never smoker Past Alcohol Use History: Occasional Past Drug Use History: None Reported - Past Family History Mother Family Medical History: Coronary Artery Disease (CAD), CVA/TIA, Hypertension, Myocardial Infarction ([place]) Father Family Medical History: Congestive Heart Failure (CHF), Coronary Artery Disease (CAD), Osteoarthritis (OA) Additional Family Medical History / Comment(s): cabg General Exam Limitations: no limitations General appearance: alert, in no apparent distress Head exam: Present: atraumatic, normocephalic Eye exam: Present: normal appearance. Absent: scleral icterus, conjunctival injection Neck exam: Present: normal inspection Respiratory exam: Present: normal lung sounds bilaterally. Absent: respiratory distress, wheezes, rales, rhonchi, stridor Cardiovascular Exam: Present: regular rate, normal rhythm, normal heart sounds. Absent: systolic murmur, diastolic murmur, rubs, gallop GI/Abdominal exam: Present: soft. Absent: distended, tenderness, guarding, rebound, rigid, mass Extremities exam: Present: normal inspection, normal capillary refill. Absent: pedal edema, calf tenderness Back exam: Present: normal inspection. Absent: CVA tenderness (R), CVA tenderness (L) Neurological exam: Present: alert Skin exam: Present: warm, dry, intact, normal color. Absent: rash Course Vital Signs 03/01/22 03/01/22 03/01/22 16:07 16:13 17:00 Temperature 98.0 F Pulse Rate 71 73 67 Respiratory 18 21 19 Rate Blood Pressure 131/86 131/86 O2 Sat by Pulse 98 Oximetry 03/01/22 03/01/22 18:00 19:00 Temperature Pulse Rate 64 64 Respiratory 18 16 Rate Blood Pressure 123/74 128/71 O2 Sat by Pulse Oximetry Disposition Clinical Impression: Chest pain Disposition: ADMITTED IP TO THIS HOSP Condition: Good Is patient prescribed a controlled substance at d/c from ED?: No
[2022-03-01 16:56] LABS: Basophils % (A) 1 %; Eosinophils # (A) 0.1 k/uL (0-0.7); Eosinophils % (A) 1 %; HCT 38.7 % (39.0-53.0); HGB 13.7 gm/dL (13.0-17.5); Lymphocytes # (A) 0.9 k/uL (1.0-4.8); Lymphocytes % (A) 14 %; MCH 30.8 pg (25.0-35.0); MCHC 35.4 g/dL (31.0-37.0); Mean Platelet Volume 8.8; Monocytes # (A) 0.4 k/uL (0-1.0); Monocytes % (A) 6 %; Neutrophils # (A) 4.7 k/uL (1.3-7.7); Neutrophils % (A) 77 %; Platelet Count 201 k/uL (150-450); RBC 4.45 m/uL (4.30-5.90); RDW 11.9 % (11.5-15.5); WBC 6.1 k/uL (3.8-10.6)
[2022-03-01 17:07] LABS: African American GFR (CKD) >90 (>60 ml/min/1.73 sqM); Albumin 4.6 g/dL (3.5-5.0); Anion Gap 9 mmol/L; Blood Urea Nitrogen 19 mg/dL (9-20); Carbon Dioxide 25 mmol/L (22-30); Chloride 106 mmol/L (98-107); Glucose 103 mg/dL (74-99); Non-African American GFR(CKD) >90 (>60 ml/min/1.73 sqM); Potassium 3.8 mmol/L (3.5-5.1); Sodium 140 mmol/L (137-145); Total Protein 6.9 g/dL (6.3-8.2)
[2022-03-01 17:08] LABS: ALT 26 U/L (4-49); AST 30 U/L (17-59); Alkaline Phosphatase 56 U/L (38-126); Calcium 9.4 mg/dL (8.4-10.2); INR 1.1 (<1.2); Magnesium 2.1 mg/dL (1.6-2.3); Partial Thromboplastin Time 23.7 sec (22.0-30.0); Prothrombin Time 11.1 sec (9.0-12.0)
--- NOTE | 2022-03-01 17:20 | XR ---
EXAMINATION TYPE: XR chest 1V portable DATE OF EXAM: 03/01/2022 4:52 PM COMPARISON: Chest radiographs from 03/27/2018 TECHNIQUE: XR chest 1V portable Portable AP radiograph of the chest. CLINICAL INDICATION:Male, 61 years old with history of chest pain; FINDINGS: Lungs/Pleura: There is no evidence of pleural effusion, focal consolidation, or pneumothorax. Pulmonary vascularity: Unremarkable. Heart/mediastinum: Cardiomediastinal silhouette is unremarkable. Musculoskeletal: No acute osseous pathology. IMPRESSION: No acute cardiopulmonary disease/process.
[2022-03-01] MEDS: MORPHINE SULFATE 4 MG/ML SYRINGE IV STA ×2 (19:08→19:11)
[2022-03-01] MEDS ORDERED: KETOROLAC 15 MG/ML 1 ML VIAL IVP STA (19:13)
[2022-03-01] MEDS ORDERED: NITROGLYCERIN SL TABS 0.4 MG TAB SUBLINGUAL PRN (20:07)
[2022-03-01] MEDS ORDERED: ALPRAZolam 0.25 MG TAB PO PRN (23:11)
[2022-03-01] MEDS ORDERED: METOPROLOL SUCCINATE (ER) 25 MG TAB.ER.24H PO SCH (23:15)
[2022-03-01] MEDS ORDERED: EZETIMIBE 10 MG TAB PO SCH (23:15)
[2022-03-01] MEDS ORDERED: ATORVASTATIN 20 MG TAB PO SCH (23:45)
[2022-03-02] MEDS ORDERED: PROPAFENONE 150 MG TAB PO PRN
[2022-03-02] MEDS ORDERED: KETOROLAC 15 MG/ML 1 ML VIAL IVP STA (03:13)
[2022-03-02 08:35] VITALS: BP 122/75; PULSE 69; RESP 16; TEMP 97.7
[2022-03-02] MEDS ORDERED: ASPIRIN 325 MG TAB PO SCH (09:00)
--- NOTE | 2022-03-02 09:08 | P.CRDCN ---
History of Present Illness Consult date: 03/02/22 Chief complaint: chest pain History of present illness: The patient is a very pleasant 61-year-old gentleman with a past medical history significant for hypertension and dyslipidemia and paroxysmal atrial fibrillation who presented to the hospital complaining of chest discomfort. The patient sees a office machines wirer out of [facility]. She just a starting seen her recently. He was experiencing chest discomfort. Further investigation was performed including a Holter monitor according to him and that showed evidence of nonsustained ventricular tachycardia as well as SVT. He goes he continues to have intermittent episodes of chest discomfort in the middle of the chest as a sharp kind of discomfort with no radiation and no specific symptoms. Further investigation with an echo and stress test was advised. The echo revealed normal left ventricular systolic function was no significant valvular abnormalities. He underwent a stress test and that came in to be abnormal showing reversibility/ischemia. The patient was seen subsequently by his office machines wirer and subsequently he underwent a CTA which I reviewed and showed mild nonobstructive coronary artery disease. Because he continues to have chest discomfort he decided to come to the hospital because he does have a component of anxiety. He was given Toradol yesterday in the emergency department he felt better and he is asking for more pain medication at this point. In the hospital he underwent workup including EKG showing sinus rhythm was no significant ST or T-wave abnormalities and also he underwent cardiac enzymes came in to be unremarkable and chest x-ray did not show any acute abnormalities as well. I informed the patient that the chest discomfort is likely noncardiac and other etiologies need to be ruled out. From the cardiovascular standpoint, the patient can be discharged home. Past Medical History Past Medical History: Atrial Fibrillation, Hyperlipidemia Additional Past Medical History / Comment(s): fist episode of afib and again in History of Any Multi-Drug Resistant Organisms: None Reported Past Surgical History: Tonsillectomy Additional Past Surgical History / Comment(s): right hand surgery d/t dupuytrens , rt eye lid sx for chalazion (cyst) Past Anesthesia/Blood Transfusion Reactions: No Reported Reaction Additional Past Anesthesia/Blood Transfusion Reaction / Comment(s): jhas never recieved any blood transfusion Past Psychological History: No Psychological Hx Reported Smoking Status: Never smoker Past Alcohol Use History: Occasional Past Drug Use History: None Reported - Past Family History Mother Family Medical History: Coronary Artery Disease (CAD), CVA/TIA, Hypertension, Myocardial Infarction ([place]) Father Family Medical History: Congestive Heart Failure (CHF), Coronary Artery Disease (CAD), Osteoarthritis (OA) Additional Family Medical History / Comment(s): cabg Medications and Allergies Home Medications Medication Instructions Recorded Confirmed Type Aspirin 325 mg PO DAILY 03/27/18 03/01/22 History Ezetimibe/Simvastatin [Vytorin 1 tab PO HS 03/27/18 03/01/22 History 10-40 mg Tablet] ALPRAZolam [Xanax] 0.25 mg PO DAILY PRN 03/01/22 03/01/22 History Metoprolol Succinate [Metoprolol 25 mg PO HS 03/01/22 03/01/22 History Succinate ER] Propafenone [Rythmol] 150 mg PO Q8H PRN 03/01/22 03/01/22 History Allergies Allergy/AdvReac Type Severity Reaction Status Date / Time No Known Allergies Allergy Verified 03/01/22 18:48 Physical Exam Vitals: Vital Signs Temp Pulse Pulse Resp BP BP Pulse Ox 03/02/22 08:20 100 03/02/22 07:00 97.7 F 69 16 122/75 99 03/02/22 03:21 98.0 F 62 17 125/75 99 03/01/22 22:15 97.8 F 74 17 125/72 99 03/01/22 19:00 64 16 128/71 03/01/22 18:00 64 18 123/74 03/01/22 17:00 67 19 131/86 03/01/22 16:13 73 21 03/01/22 16:07 98.0 F 71 18 131/86 98 Intake and Output 03/01/22 03/02/22 03/02/22 22:59 06:59 14:59 Other: # Voids 1 2 Weight 95.254 kg - Constitutional General appearance: no acute distress - Respiratory Respiratory: bilateral: CTA - Cardiovascular Rhythm: regular Heart sounds: normal: S1, S2 Results 03/01/22 16:42 03/01/22 16:42 Cardiac Enzymes 03/01/22 03/01/22 03/01/22 Range/Units 16:42 16:42 20:30 AST 30 (17-59) U/L Troponin I <0.012 <0.012 (0.000-0.034) ng/mL 03/01/22 Range/Units 22:48 AST (17-59) U/L Troponin I <0.012 (0.000-0.034) ng/mL Coagulation 03/01/22 Range/Units 16:42 PT 11.1 (9.0-12.0) sec APTT 23.7 (22.0-30.0) sec CBC 03/01/22 Range/Units 16:42 WBC 6.1 (3.8-10.6) k/uL RBC 4.45 (4.30-5.90) m/uL Hgb 13.7 (13.0-17.5) gm/dL Hct 38.7 L (39.0-53.0) % Plt Count 201 (150-450) k/uL Comprehensive Metabolic Panel 03/01/22 Range/Units 16:42 Sodium 140 (137-145) mmol/L Potassium 3.8 (3.5-5.1) mmol/L Chloride 106 (98-107) mmol/L Carbon Dioxide 25 (22-30) mmol/L BUN 19 (9-20) mg/dL Creatinine 0.73 (0.66-1.25) mg/dL Glucose 103 H (74-99) mg/dL Calcium 9.4 (8.4-10.2) mg/dL AST 30 (17-59) U/L ALT 26 (4-49) U/L Alkaline Phosphatase 56 (38-126) U/L Total Protein 6.9 (6.3-8.2) g/dL Albumin 4.6 (3.5-5.0) g/dL Current Medications Generic Name Dose Route Start Last Admin Trade Name Freq PRN Reason Stop Dose Admin Alprazolam 0.25 mg 03/01/22 23:11 Alprazolam 0.25 Mg Tab PO DAILY PRN Anxiety Aspirin 325 mg 03/02/22 09:00 03/02/22 07:41 Aspirin 325 Mg Tab PO 325 mg DAILY BRIANNE Administration Atorvastatin Calcium 20 mg 03/01/22 23:45 03/01/22 23:31 Atorvastatin 20 Mg Tab PO Not Given HS BRIANNE Ezetimibe 10 mg 03/01/22 23:15 03/01/22 23:29 Ezetimibe 10 Mg Tab PO 10 mg HS BRIANNE Administration Metoprolol Succinate 25 mg 03/01/22 23:15 03/01/22 23:29 Metoprolol Succinate (Er) 25 Mg Tab.Er.24h PO 25 mg HS BRIANNE Administration Nitroglycerin 0.4 mg 03/01/22 20:07 Nitroglycerin Sl Tabs 0.4 Mg Tab SUBLINGUAL Q5M PRN Chest Pain Propafenone HCl 150 mg 03/02/22 00:00 Propafenone 150 Mg Tab PO Q8H PRN AFIB Intake and Output 03/01/22 03/02/22 03/02/22 22:59 06:59 14:59 Other: # Voids 1 2 Weight 95.254 kg 03/01/22 16:42 03/01/22 16:42 Assessment and Plan Assessment: Assessment Chest discomfort likely to be noncardiac Mild nonobstructive CAD based on recent coronary CTA Paroxysmal atrial fibrillation Hypertension Dyslipidemia Plan Acute coronary event was ruled out From the cardiac standpoint the patient can be discharged home
[2022-03-02 11:11] LABS: Chol/HDL Ratio 3.17 Ratio
[2022-03-02] MEDS: NAPROXEN 250 MG TAB PO SCH (13:02)
--- NOTE | 2022-03-02 14:27 | P.HPIM ---
History of Present Illness H&P Date: 03/02/22 Chief Complaint: Chest pain This is a very pleasant 61-year-old patient, follows with Dr. Armas. Chronic stable medical conditions include hyperlipidemia, atrial fibrillation, anxiety. Patient follows up until is Dr. Guillermo in the [facility]. Patient underwent a stress test on February 11. Since then he's been noticing that he has this dull pain in the middle of the chest sternal area. Some reproducibility. Sometimes does get short of breath. No radiation. No obvious exacerbating or relieving factors. No swelling of the legs. No dizziness no lightheadedness no cough no fever no chills. Patient has rather extensive workup done at outside hospital including [facility] including negative for pulmonary embolism. Patient has no respiratory history. Patient now presented to same symptom worsening pain of the left costochondral junction. Hurts to press. Even at night when he sleeps on the left side the pain gets worse. Sometimes he states of awake worrying about the same. Patient's friend Micheal's the room confirms that patient's up anxious disposition. 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 Good exercise tolerance. Recent coronary CTA, showed mild, nonobstructive disease Review of systems: GEN.: None EYES: None HEENT: None NECK: None RESPIRATORY: As above CARDIOVASCULAR: As above GASTROINTESTINAL: None GENITOURINARY: None MUSCULOSKELETAL: As above LYMPHATICS: None HEMATOLOGICAL: None PSYCHIATRY: [Anxious NEUROLOGICAL: None. Past medical history to include: Atrial fibrillation, hyperlipidemia, anxiety Social history: No smoking. Alcohol occasionally. Retired. Physical examination: VITAL SIGNS: 97.7, 69, 16, 122/75, 99% room air GENERAL: BMI 27, sitting regimen awake, anxious. EYES: Pupils equal. Conjunctiva normal. HEENT: External appearance of nose and ears normal, oral cavity grossly normal. NECK: JVD not raised; masses not palpable. HEART: First and second heart sounds are normal; no edema. LUNGS: Respiratory rate normal; clear to auscultation. ABDOMEN: Soft, nontender, liver spleen not palpable, no masses palpable. PSYCH: Alert and oriented x3; mood and affect normal. MUSCULOSKELETAL:No Clubbing/cyanosis;muscles-grossly intact. Remote producible pain of the left costochondral junction. NEUROLOGICAL: Cranial nerves grossly intact; no facial asymmetry, power and sensation grossly intact. LYMPHATICS: No lymph nodes palpable in the axilla and neck INVESTIGATIONS, reviewed in the clinical context: White count 6.1 hemoglobin 13.7 platelets 201 sodium 140 potassium 3.8 creatinine 0.73 Troponin I less than 0.012 LDL 88 EKG tracing personally reviewed by me-normal sinus rhythm. 59. Chest x-ray film personally reviewed by me-lungs clear Assessment and plan: -Anterior chest wall pain. Noncardiac sounding. Reproducible pain. Patient is a reduction nuclear stress test, that was negative CT angiogram of the chest. Negative for PE. Has good exercise tolerance. Reproducible pain. Likely costochondritis. Patient's pain overnight responded well to Toradol given in the ER. -Anxiety not otherwise specified Advised to do mindfulness -Paroxysmal atrial fibrillation Rythmol, Toprol-XL 25 mg daily at bedtime, aspirin -Hyperlipidemia Vicodin 10/40 Telemetry. Resume home medications. Cardiology consulted. Patient responded well to Toradol. Discussed with patient and friend. Past Medical History Past Medical History: Atrial Fibrillation, Hyperlipidemia Additional Past Medical History / Comment(s): fist episode of afib and again in History of Any Multi-Drug Resistant Organisms: None Reported Past Surgical History: Tonsillectomy Additional Past Surgical History / Comment(s): right hand surgery d/t dupuytrens , rt eye lid sx for chalazion (cyst) Past Anesthesia/Blood Transfusion Reactions: No Reported Reaction Additional Past Anesthesia/Blood Transfusion Reaction / Comment(s): jhas never recieved any blood transfusion Past Psychological History: No Psychological Hx Reported Smoking Status: Never smoker Past Alcohol Use History: Occasional Past Drug Use History: None Reported - Past Family History Mother Family Medical History: Coronary Artery Disease (CAD), CVA/TIA, Hypertension, Myocardial Infarction ([place]) Father Family Medical History: Congestive Heart Failure (CHF), Coronary Artery Disease (CAD), Osteoarthritis (OA) Additional Family Medical History / Comment(s): cabg Medications and Allergies Home Medications Medication Instructions Recorded Confirmed Type Aspirin 325 mg PO DAILY 03/27/18 03/01/22 History Ezetimibe/Simvastatin [Vytorin 1 tab PO HS 03/27/18 03/01/22 History 10-40 mg Tablet] ALPRAZolam [Xanax] 0.25 mg PO DAILY PRN 03/01/22 03/01/22 History Metoprolol Succinate [Metoprolol 25 mg PO HS 03/01/22 03/01/22 History Succinate ER] Propafenone [Rythmol] 150 mg PO Q8H PRN 03/01/22 03/01/22 History Naproxen [Naprosyn] 250 mg PO TID-W/MEALS #30 tab 03/02/22 Rx Allergies Allergy/AdvReac Type Severity Reaction Status Date / Time No Known Allergies Allergy Verified 03/01/22 18:48 Physical Exam Vitals: Vital Signs Temp Pulse Pulse Resp BP BP Pulse Ox 03/02/22 08:20 100 03/02/22 07:00 97.7 F 69 16 122/75 99 03/02/22 03:21 98.0 F 62 17 125/75 99 03/01/22 22:15 97.8 F 74 17 125/72 99 03/01/22 19:00 64 16 128/71 03/01/22 18:00 64 18 123/74 03/01/22 17:00 67 19 131/86 03/01/22 16:13 73 21 03/01/22 16:07 98.0 F 71 18 131/86 98 Intake and Output 03/01/22 03/02/22 03/02/22 22:59 06:59 14:59 Other: # Voids 1 2 Weight 95.254 kg Results CBC & Chem 7: 03/01/22 16:42 03/01/22 16:42 Labs: Abnormal Lab Results - Last 24 Hours (Table) 03/01/22 03/01/22 Range/Units 16:42 16:42 Hct 38.7 L (39.0-53.0) % Lymphocytes # 0.9 L (1.0-4.8) k/uL Glucose 103 H (74-99) mg/dL Thrombosis Risk Factor Assmnt - Choose All That Apply Each Factor Represents 1 point: Obesity (BMI >25) Each Risk Factor Represents 2 Points: Age 61-74 years Thrombosis Risk Factor Assessment Total Risk Factor Score: 3 Thrombosis Risk Factor Assessment Level: Moderate Risk
--- NOTE | 2022-03-02 14:29 | P.DS ---
Providers Date of admission: 03/01/22 20:10 Expected date of discharge: 03/02/22 Attending physician: Armando Thompson Consults: 03/01/22 20:07 Consult Physician Routine Consulting Provider: Kostas Jorgensen Consult Reason/Comments: chest pain Do you want consulting provider notified?: Yes Primary care physician: Carlos A [facility] Course: Chief Complaint: Chest pain This is a very pleasant 61-year-old patient, follows with Dr. Armas. Chronic stable medical conditions include hyperlipidemia, atrial fibrillation, anxiety. Patient follows up until is Dr. Guillermo in the [facility]. Patient underwent a stress test on February 11. Since then he's been noticing that he has this dull pain in the middle of the chest sternal area. Some re producibility. Sometimes does get short of breath. No radiation. No obvious exacerbating or relieving factors. No swelling of the legs. No dizziness no lightheadedness no cough no fever no chills. Patient has rather extensive workup done at outside hospital including [facility] including negative for pulmonary embolism. Patient has no respiratory history. Patient now presented to same symptom worsening pain of the left costochondral junction. Hurts to press. Even at night when he sleeps on the left side the pain gets worse. Sometimes he states of awake worrying about the same. Patient's friend Micheal's the room confirms that patient's up anxious disposition. 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 Good exercise tolerance. Recent coronary CTA, showed mild, nonobstructive disease Chest pain is felt to be acute costochondritis. Patient has a significant anxiety component. Advised mindfulness. We will do a course of naproxen. He'll follow-up with PCP. Seen by Dr. Lopez from cardiology. 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 Guillermo. Past medical history to include: Atrial fibrillation, hyperlipidemia, anxiety Social history: No smoking. Alcohol occasionally. Retired. Physical examination: VITAL SIGNS: 97.7, 69, 16, 122/75, 99% room air GENERAL: BMI 27, sitting regimen awake, anxious. EYES: Pupils equal. Conjunctiva normal. HEENT: External appearance of nose and ears normal, oral cavity grossly normal. NECK: JVD not raised; masses not palpable. HEART: First and second heart sounds are normal; no edema. LUNGS: Respiratory rate normal; clear to auscultation. ABDOMEN: Soft, nontender, liver spleen not palpable, no masses palpable. PSYCH: Alert and oriented x3; mood and affect normal. MUSCULOSKELETAL:No Clubbing/cyanosis;muscles-grossly intact. Remote producible pain of the left costochondral junction. NEUROLOGICAL: Cranial nerves grossly intact; no facial asymmetry, power and sensation grossly intact. LYMPHATICS: No lymph nodes palpable in the axilla and neck INVESTIGATIONS, reviewed in the clinical context: White count 6.1 hemoglobin 13.7 platelets 201 sodium 140 potassium 3.8 creatinine 0.73 Troponin I less than 0.012 LDL 88 EKG tracing personally reviewed by me-normal sinus rhythm. 59. Chest x-ray film personally reviewed by me-lungs clear Assessment and plan: -Anterior chest wall pain. Noncardiac sounding. Reproducible pain. Patient is a reduction nuclear stress test, that was negative CT angiogram of the chest. Negative for PE. Has good exercise tolerance. Reproducible pain. Likely costochondritis. Patient's pain overnight responded well to Toradol given in the ER. Naproxen 250 mg 3 times a day for 7 days -Anxiety not otherwise specified Advised to do mindfulness -Paroxysmal atrial fibrillation Rythmol, Toprol-XL 25 mg daily at bedtime, aspirin -Hyperlipidemia Vicodin Disposition: Home Plan - Discharge Summary New Discharge Prescriptions: New Naproxen [Naprosyn] 250 mg PO TID-W/MEALS #30 tab Continue Ezetimibe/Simvastatin [Vytorin 10-40 mg Tablet] 1 tab PO HS Aspirin 325 mg PO DAILY Propafenone [Rythmol] 150 mg PO Q8H PRN PRN Reason: AFIB ALPRAZolam [Xanax] 0.25 mg PO DAILY PRN PRN Reason: Anxiety Metoprolol Succinate [Metoprolol Succinate ER] 25 mg PO HS Discharge Medication List Aspirin 325 mg PO DAILY 03/27/18 [History] Ezetimibe/Simvastatin [Vytorin 10-40 mg Tablet] 1 tab PO HS 03/27/18 [History] ALPRAZolam [Xanax] 0.25 mg PO DAILY PRN 03/01/22 [History] Metoprolol Succinate [Metoprolol Succinate ER] 25 mg PO HS 03/01/22 [History] Propafenone [Rythmol] 150 mg PO Q8H PRN 03/01/22 [History] Naproxen [Naprosyn] 250 mg PO TID-W/MEALS #30 tab 03/02/22 [Rx] Follow up Appointment(s)/Referral(s): Carlos A Armas DO [Primary Care Provider] - 1-2 days Patient Instructions/Handouts: Chest Pain (ED), Chest Pain (DC) Discharge Disposition: HOME SELF-CARE
== END 2022-03-02 13:35 | disposition home or self-care (01) | DRG 206 ==
LOC: EC 16:04 → 6NMEDSUR 20:10
PROVIDERS: ADMIT Hospitalist; ATTEND Hospitalist
DX: M94.0 Chondrocostal junction syndrome [Tietze] (principal); I48.0 Paroxysmal atrial fibrillation; E78.5 Hyperlipidemia, unspecified; F41.9 Anxiety disorder, unspecified; I10 Essential (primary) hypertension; I25.10 Atherosclerotic heart disease of native coronary artery without angina pectoris; E66.9 Obesity, unspecified; Z68.27 Body mass index [BMI] 27.0-27.9, adult; Z86.79 Personal history of other diseases of the circulatory system; Z79.82 Long term (current) use of aspirin; Z79.899 Other long term (current) drug therapy; Z82.49 Family history of ischemic heart disease and other diseases of the circulatory system
CPT/HCPCS: 36415; 71045; 80053; 80061; 83735; 84484; 85025; 85610; 85730; 93005; 94760; 96374; 99285

== ENCOUNTER → 2022-03-13 | Outpatient (CLI) | payer BC ==
--- NOTE | 2022-04-15 08:25 | P.CEMON ---
30 day event monitor report A total of 206 pages were reviewed on this event monitor which included 957 ECG recordings The vast majority of these strip showed sinus rhythm Some showed premature beats mostly supraventricular Out of this immense data, 9 pages was selected for nonsustained arrhythmia recordings #1. several episodes of PAT with heart rates ranging from 105-178 beats per minute #2. single ventricular tachycardia for 29 beats. Patient described palpitations and irregular heartbeat during these episodes However he also described palpitations during normal rhythm He also described increasing of fast heartbeat and his heart rate was 85 beats a minute, strip #383 On other occasions he had very brief nonsustained atrial tachycardia without any symptoms at all Suggest Check TSH, evaluate for hypothyroidism and other noncardiac medical conditions that can exacerbate nonsustained arrhythmias Patient has had a detailed workup at [facility] and [facility] Twelve-lead EKG is normal No delta waves no epsilon waves normal ST segments Recent 2-D echo shows normal LV systolic function Normal RV function He has had a CT of the chest which did not show any evidence for pulmonary embolism He has had a stress test showed a small area of stress-induced ischemia suggested at the cardiac apex However he had a follow-up coronary CTA at [facility] that did not show any significant coronary artery disease Suggest beta blockers from a cardiac standpoint Follow-up with PCP
--- NOTE | 2022-04-15 21:57 | EM ---
EVENT MONITOR STUDY PERFORMED: A 30-day event monitor. INDICATION: Tachycardia. Underlying rhythm is sinus with episodes of sinus tachycardia and sinus bradycardia with paroxysmal atrial tachycardia with occasional PVCs, runs of wide-complex tachycardia. There was a 26-beat run of wide-complex tachycardia noted. CONCLUSION: This 30-day event monitor shows sinus rhythm. There were episodes of paroxysmal atrial tachycardia and there was also one 26-beat run of wide-complex tachycardia. This is an abnormal study. MMODL / IJN: [id number] /
== END | disposition home or self-care (01) ==
LOC: RADECHMAIN 07:27
PROVIDERS: ATTEND Family Medicine
DX: I47.1 Supraventricular tachycardia (principal); I24.8 Other forms of acute ischemic heart disease
CPT/HCPCS: 93270

== ENCOUNTER 2022-03-15 06:50 | Observation (INO) | payer BC ==
[2022-03-15] MEDS ORDERED: ASPIRIN 81 MG PO STA (07:31)
[2022-03-15] MEDS ORDERED: NITROGLYCERIN OINT 1 INCH/GM PACKET TOPICAL STA (07:31)
--- NOTE | 2022-03-15 07:35 | ED ---
General Adult HPI - General Chief complaint: Chest Pain Stated complaint: chest tightness Time Seen by Provider: 03/15/22 07:06 Source: patient, RN notes reviewed, old records reviewed (Multiple previous EKGs reviewed, including from inpatient) Mode of arrival: ambulatory Limitations: no limitations - History of Present Illness Initial comments: Patient is a pleasant 61-year-old male presenting to the emergency department with concerns of chest discomfort. Symptoms have been occurring mostly over the past couple of days. Patient has had some similar symptoms over the past couple months since he had a stress test. Patient has chest pressure. Currently discomfort is 2 or 3/10. Patient does have some mild associated dyspnea and anxiety. No nausea. No diaphoresis. Patient has occasional palpitations - Related Data Home Medications Medication Instructions Recorded Confirmed Aspirin 325 mg PO DAILY 03/27/18 03/01/22 Ezetimibe/Simvastatin [Vytorin 1 tab PO HS 03/27/18 03/01/22 10-40 mg Tablet] ALPRAZolam [Xanax] 0.25 mg PO DAILY PRN 03/01/22 03/01/22 Metoprolol Succinate [Metoprolol 25 mg PO HS 03/01/22 03/01/22 Succinate ER] Propafenone [Rythmol] 150 mg PO Q8H PRN 03/01/22 03/01/22 Previous Rx's Medication Instructions Recorded Naproxen [Naprosyn] 250 mg PO TID-W/MEALS #30 tab 03/02/22 Allergies Allergy/AdvReac Type Severity Reaction Status Date / Time No Known Allergies Allergy Verified 03/15/22 06:57 Review of Systems ROS Statement: Those systems with pertinent positive or pertinent negative responses have been documented in the HPI. ROS Other: All systems not noted in ROS Statement are negative. Constitutional: Denies: fever Eyes: Denies: eye pain ENT: Denies: ear pain Respiratory: Reports: as per HPI. Denies: cough Cardiovascular: Reports: as per HPI, chest pain Endocrine: Denies: fatigue Gastrointestinal: Denies: abdominal pain Genitourinary: Denies: dysuria Musculoskeletal: Denies: back pain Skin: Denies: rash Neurological: Denies: weakness Past Medical History Past Medical History: Atrial Fibrillation, Hyperlipidemia Additional Past Medical History / Comment(s): fist episode of afib and again in History of Any Multi-Drug Resistant Organisms: None Reported Past Surgical History: Tonsillectomy Additional Past Surgical History / Comment(s): right hand surgery d/t dupuytrens , rt eye lid sx for chalazion (cyst) Past Anesthesia/Blood Transfusion Reactions: No Reported Reaction Additional Past Anesthesia/Blood Transfusion Reaction / Comment(s): josr never recieved any blood transfusion Past Psychological History: No Psychological Hx Reported Smoking Status: Never smoker Past Alcohol Use History: Occasional Past Drug Use History: None Reported - Past Family History Mother Family Medical History: Coronary Artery Disease (CAD), CVA/TIA, Hypertension, Myocardial Infarction ([place]) Father Family Medical History: Congestive Heart Failure (CHF), Coronary Artery Disease (CAD), Osteoarthritis (OA) Additional Family Medical History / Comment(s): cabg General Exam Limitations: no limitations General appearance: alert, in no apparent distress Head exam: Present: normocephalic Eye exam: Present: normal appearance Neck exam: Present: normal inspection Respiratory exam: Present: normal lung sounds bilaterally, other (Patient has an event monitor on chest wall.). Absent: chest wall tenderness Cardiovascular Exam: Present: regular rate, normal rhythm Expanded Peripheral pulses: 2+: Radial (R), Radial (L), Posterior Tibialis (R), Posterior Tibialis (L) GI/Abdominal exam: Present: soft. Absent: tenderness Extremities exam: Present: normal inspection. Absent: pedal edema, calf tenderness Neurological exam: Present: alert Psychiatric exam: Present: normal affect, normal mood Skin exam: Present: normal color Course Vital Signs 03/15/22 06:55 Temperature 97.9 F Pulse Rate 76 Respiratory 18 Rate Blood Pressure 113/73 O2 Sat by Pulse 99 Oximetry EKG Findings - EKG Results: EKG: interpreted by ERMD (Nonspecific ST-T.), sinus rhythm, normal axis, normal QRS Medical Decision Making - Medical Decision Making Was pt. sent in by a medical professional or institution? @ -n Did you speak to anyone other than the patient for history? @ -n Did you review nursing and triage notes? @ -S agreed with nursing notes. Were old charts reviewed? @ -Previous EKGs reviewed, including inpatient and previous admission Differential Diagnosis? @ -Differential chest pain EKG interpreted by me (3pts min.)? @ -Yes X-rays interpreted by me (1pt min.)? @ -Yes CT interpreted by me (1pt min.)? @ -n U/S interpreted by me (1pt. min.)? @ -n What testing was considered but not performed? (CT, X-rays, U/S, labs)? Why? @Echo was considered however this will be deferred pending cardiology evaluation What meds were considered but not given? Why? @ -Aspirin was held secondary to patient this morning Did you discuss the management of the patient with other professionals? @ -Discussed with practitioner Kathia, who will admit covering Dr. Guerrero, who covers Dr. Armas. Did you reconcile home meds? @ -Medications will be reviewed Was smoking cessation discussed for >3mins.? @ -n Was critical care preformed (if so, how long)? @ -n Were there social determinants of health that impacted care today? How? (Homelessness, low income, unemployed, alcoholism, drug addiction, transportation, low edu. Level, literacy, decrease access to med. care, snf, rehab)? @ -n Was there de-escalation of care discussed even if they declined? (Discuss DNR or withdrawal of care, Hospice)? @ -n What co-morbidities impacted this encounter? (DM, HTN, Smoking, COPD, CAD, Cancer, CVA, Hep., AIDS, mental health diagnosis, sleep apnea, morbid obesity)? @ -Patient does have history of hypertension and hyperlipidemia making him increased risk for cardiac disease Was patient admitted / discharged? @ -Patient will be admitted Undiagnosed new problem with uncertain prognosis? @ -n Drug Therapy requiring intensive monitoring for toxicity (Heparin, Nitro, Insulin, Cardizem)? @ -n Were any procedures done? @ -n Diagnosis/symptom? @ -Chest pain Acute, or Chronic, or Acute on Chronic? @ -Acute on chronic Uncomplicated (without systemic symptoms) or Complicated (systemic symptoms)? @ -Uncomplicated Side effects of treatment? @ -n Exacerbation, Progression, or Severe Exacerbation] @ -Exacerbation Poses a threat to life or bodily function? @ -Potential threat - Lab Data Result diagrams: 03/15/22 07:33 03/15/22 07:33 Lab Results 03/15/22 03/15/22 03/15/22 Range/Units 07:33 07:33 07:33 WBC 7.7 (3.8-10.6) k/uL RBC 4.90 (4.30-5.90) m/uL Hgb 15.0 (13.0-17.5) gm/dL Hct 43.9 (39.0-53.0) % MCV 89.6 (80.0-100.0) fL MCH 30.7 (25.0-35.0) pg MCHC 34.2 (31.0-37.0) g/dL RDW 12.0 (11.5-15.5) % Plt Count 230 (150-450) k/uL MPV 8.5 Neutrophils % 81 % Lymphocytes % 12 % Monocytes % 5 % Eosinophils % 1 % Basophils % 1 % Neutrophils # 6.2 (1.3-7.7) k/uL Lymphocytes # 0.9 L (1.0-4.8) k/uL Monocytes # 0.4 (0-1.0) k/uL Eosinophils # 0.0 (0-0.7) k/uL Basophils # 0.0 (0-0.2) k/uL Sodium 141 (137-145) mmol/L Potassium 4.1 (3.5-5.1) mmol/L Chloride 103 (98-107) mmol/L Carbon Dioxide 30 (22-30) mmol/L Anion Gap 8 mmol/L BUN 22 H (9-20) mg/dL Creatinine 0.82 (0.66-1.25) mg/dL Est GFR (CKD-EPI)AfAm >90 (>60 ml/min/1.73 sqM) Est GFR (CKD-EPI)NonAf >90 (>60 ml/min/1.73 sqM) Glucose 115 H (74-99) mg/dL Calcium 9.6 (8.4-10.2) mg/dL Magnesium 2.2 (1.6-2.3) mg/dL Total Bilirubin 1.3 (0.2-1.3) mg/dL AST 33 (17-59) U/L ALT 34 (4-49) U/L Alkaline Phosphatase 63 (38-126) U/L Troponin I <0.012 (0.000-0.034) ng/mL NT-Pro-B Natriuret Pep pg/mL Total Protein 7.7 (6.3-8.2) g/dL Albumin 5.0 (3.5-5.0) g/dL Amylase 55 (30-110) U/L Lipase 84 (23-300) U/L 03/15/22 Range/Units 07:33 WBC (3.8-10.6) k/uL RBC (4.30-5.90) m/uL Hgb (13.0-17.5) gm/dL Hct (39.0-53.0) % MCV (80.0-100.0) fL MCH (25.0-35.0) pg MCHC (31.0-37.0) g/dL RDW (11.5-15.5) % Plt Count (150-450) k/uL MPV Neutrophils % % Lymphocytes % % Monocytes % % Eosinophils % % Basophils % % Neutrophils # (1.3-7.7) k/uL Lymphocytes # (1.0-4.8) k/uL Monocytes # (0-1.0) k/uL Eosinophils # (0-0.7) k/uL Basophils # (0-0.2) k/uL Sodium (137-145) mmol/L Potassium (3.5-5.1) mmol/L Chloride (98-107) mmol/L Carbon Dioxide (22-30) mmol/L Anion Gap mmol/L BUN (9-20) mg/dL Creatinine (0.66-1.25) mg/dL Est GFR (CKD-EPI)AfAm (>60 ml/min/1.73 sqM) Est GFR (CKD-EPI)NonAf (>60 ml/min/1.73 sqM) Glucose (74-99) mg/dL Calcium (8.4-10.2) mg/dL Magnesium (1.6-2.3) mg/dL Total Bilirubin (0.2-1.3) mg/dL AST (17-59) U/L ALT (4-49) U/L Alkaline Phosphatase (38-126) U/L Troponin I (0.000-0.034) ng/mL NT-Pro-B Natriuret Pep 109 pg/mL Total Protein (6.3-8.2) g/dL Albumin (3.5-5.0) g/dL Amylase (30-110) U/L Lipase (23-300) U/L - Radiology Data Interpreted by me: Chest x-ray shows no acute process Disposition Clinical Impression: Chest pain Disposition: ADMITTED IP TO THIS HOSP Is patient prescribed a controlled substance at d/c from ED?: No Referrals: Carlos A Armas DO [Primary Care Provider] - 1-2 days Time of Disposition: 08:25
[2022-03-15 07:42] LABS: Basophils % (A) 1 %; Eosinophils % (A) 1 %; HCT 43.9 % (39.0-53.0); Lymphocytes # (A) 0.9 k/uL (1.0-4.8); Lymphocytes % (A) 12 %; MCH 30.7 pg (25.0-35.0); MCHC 34.2 g/dL (31.0-37.0); MCV 89.6 fL (80.0-100.0); Mean Platelet Volume 8.5; Monocytes # (A) 0.4 k/uL (0-1.0); Monocytes % (A) 5 %; Neutrophils # (A) 6.2 k/uL (1.3-7.7); Neutrophils % (A) 81 %; Platelet Count 230 k/uL (150-450); WBC 7.7 k/uL (3.8-10.6)
[2022-03-15 07:52] LABS: ALT 34 U/L (4-49); AST 33 U/L (17-59); African American GFR (CKD) >90 (>60 ml/min/1.73 sqM); Alkaline Phosphatase 63 U/L (38-126); Amylase 55 U/L (30-110); Anion Gap 8 mmol/L; Blood Urea Nitrogen 22 mg/dL (9-20); Calcium 9.6 mg/dL (8.4-10.2); Carbon Dioxide 30 mmol/L (22-30); Chloride 103 mmol/L (98-107); Glucose 115 mg/dL (74-99); Lipase 84 U/L (23-300); Magnesium 2.2 mg/dL (1.6-2.3); Non-African American GFR(CKD) >90 (>60 ml/min/1.73 sqM); Potassium 4.1 mmol/L (3.5-5.1); Sodium 141 mmol/L (137-145); Total Bilirubin 1.3 mg/dL (0.2-1.3); Total Protein 7.7 g/dL (6.3-8.2)
--- NOTE | 2022-03-15 07:57 | XR ---
EXAMINATION TYPE: XR chest 2V DATE OF EXAM: 03/15/2022 COMPARISON: Chest x-ray March 01, 2022 HISTORY: Chest pain. TECHNIQUE: Frontal and lateral views of the chest are obtained. FINDINGS: There is no suspicious new focal air space opacity, pleural effusion, or pneumothorax seen . The cardiac silhouette size is stable and within normal limits. The osseous structures are intac t. Overlying EKG leads redemonstrated. IMPRESSION: No acute process. No significant change from prior.
[2022-03-15 08:14] LABS: Partial Thromboplastin Time 25.4 sec (22.0-30.0); Prothrombin Time 10.5 sec (9.0-12.0)
[2022-03-15] MEDS ORDERED: LORazepam 1 MG TAB PO STA (08:28)
[2022-03-15] MEDS ORDERED: ALPRAZolam 0.25 MG TAB PO PRN (08:44)
[2022-03-15] MEDS ORDERED: NITROGLYCERIN SL TABS 0.4 MG TAB SUBLINGUAL PRN (08:45)
--- NOTE | 2022-03-15 09:18 | CT ---
EXAMINATION TYPE: CT angio chest DATE OF EXAM: 03/15/2022 COMPARISON: None HISTORY: Chest tightness, elevated d-dimer CT DLP: 423.4 mGycm CONTRAST: CT chest with contrast and 3D reconstruction with MIP imaging is performed with IV Contrast, patient injected with 100 mL of Isovue 370. Contrast-enhanced CT of the chest was performed through the course of the pulmonary arteries with livier g and mediastinal window settings submitted. 3D reconstruction with MIP imaging was also performed. PULMONARY ARTERIES: The pulmonary arteries and their major tributaries are patent. I do not see bonilla dence for sizable filling defect to suggest pulmonary embolic process. LUNGS: Mild scattered emphysematous changes. The lungs are clear and free of infiltrate. No evidence for atelectasis. No pulmonary nodule or mass is detected. No pleural effusion. MEDIASTINUM: Thoracic aorta is of normal caliber,however, evaluation is limited given timing of the contrast bolus. If there is concern for thoracic aortic pathology consider JOVANNI. Correlate clinicall y . The heart is not enlarged. No evidence for mediastinal mass. No mediastinal lymph nodes greater than 1cm. HILAR STRUCTURES: No evidence for mass. No hilar lymph nodes greater than 1 cm. UPPER ABDOMEN: No significant abnormality is seen. IMPRESSION: 1. No evidence for Pulmonary embolism at this time.
[2022-03-15] MEDS: NITROGLYCERIN OINT 1 INCH/GM PACKET TOPICAL SCH ×3 (11:00→18:53)
[2022-03-15] MEDS ORDERED: PROPAFENONE 150 MG TAB PO PRN (13:58)
--- NOTE | 2022-03-15 14:01 | P.CRDCN ---
History of Present Illness Consult date: 03/15/22 Consult reason: chest pain History of present illness: HISTORY OF PRESENT ILLNESS The patient is a very pleasant 61-year-old gentleman with a past medical history significant for hypertension and dyslipidemia and paroxysmal atrial fibrillation who presented to the hospital complaining of chest discomfort. The patient sees a full stack php developer out of [facility]. Recent investigation was performed including a Holter monitor according to him and that showed evidence of nonsustained ventricular tachycardia as well as SVT. Patient was recently seen on March 02 which time all the following studies were reviewed. Echocardiogram 01/07/2022 revealed normal left ventricular size and systolic function. Mild mitral regurgitation. Cardiolite stress test came in showing abnormal reversibility and ischemia CTA showed mild nonobstructive coronary artery disease. He has subsequently been seen by his primary care physician and has a registered nurse cardiac in place. He complains of a fullness and heaviness this week in his chest. This morning awoke him from sleep. He still has some now. He is asking whether the stress test did some electrical damage to his heart. All reports been reviewed with the patient by Dr. Jorgensen. Patient is requesting a repeat echocardiogram which he states he will pay for out of pocket but is not medically warranted at this time. Patient also complains of numbness and pain in his left leg. He does have strong dorsalis pedis and posterior tibial pulses. Patient does admit that there could be a component of anxiety. EKG sinus rhythm CTA of the chest was negative for pulmonary embolism Chest x-ray reveals no acute process CBC and CMP unremarkable. Troponin negative 2. D-dimer 2.18. Patient's home cardiac medications include Rythmol 150 mg every 8 hours as needed, metoprolol succinate 25 mg twice daily, Vytorin 1 tablet at bedtime, aspirin 325 mg daily REVIEW OF SYSTEMS Constitutional: No fever, no chills. No weakness, fatigue or lethargy. EENT: No headache. No dizziness. Lungs: No shortness of breath, cough, no sputum production. No wheezing. Cardiovascular: Reports chest pain, no lower extremity edema. No palpitations. No paroxysmal nocturnal dyspnea. No orthopnea. No lightheadedness or dizziness. No syncopal episodes. Abdominal: No abdominal pain. No nausea, vomiting. No diarrhea. No constipation. No bloody or tarry stools. No loss of appetite. Genitourinary: No dysuria.. No urinary retention. Musculoskeletal: No myalgias. No muscle weakness, no gait dysfunction, no frequent falls. No back pain. No neck pain. Reports left leg pain and numbness Integumentary: No wounds, no lesions. No rash or pruritus. No unusual bruising. Neurologic: No aphasia. No facial droop. No change in mentation. No head injury. No headache. No paralysis. No paresthesia. Psychiatric: No depression. No anxiety. Endocrine: No abnormal blood sugars. PHYSICAL EXAMINATION Gen: This is a 61-year-old male. He is resting in bed appears to be comfortable. VS: reviewed HEENT: Head is atraumatic, normocephalic. Pupils equal, round. Sclerae is anicteric. NECK: Supple. No JVD. No lymphadenopathy. No thyromegaly. LUNGS: Clear to auscultation. No wheezes or rhonchi. No intercostal retractions. HEART: Regular rate and rhythm. No murmur. ABDOMEN: Soft. Bowel sounds are present. No masses. No tenderness. EXTREMITIES: No pedal edema. No calf tenderness. NEUROLOGICAL: Patient is awake, alert and oriented x3. Cranial nerves 2 through 12 are grossly intact. ASSESSMENT Chest pain with negative troponins, acute coronary syndrome ruled out Palpitations Hypertension Dyslipidemia Paroxysmal atrial fibrillation PLAN Agree with resuming patient's home cardiac medications No need to repeat echocardiogram has was just done in December All previous cardiac workup has been reviewed with the patient We will repeat troponin Further recommendations to follow based upon clinical course Thank you kindly for this consultation. Nurse practitioner note has been reviewed, I agree with documented findings and plan of care. Patient was seen and examined. Past Medical History Past Medical History: Atrial Fibrillation, Hyperlipidemia Additional Past Medical History / Comment(s): fist episode of afib and again in History of Any Multi-Drug Resistant Organisms: None Reported Past Surgical History: Tonsillectomy Additional Past Surgical History / Comment(s): right hand surgery d/t dupuytrens , rt eye lid sx for chalazion (cyst) Past Anesthesia/Blood Transfusion Reactions: No Reported Reaction Additional Past Anesthesia/Blood Transfusion Reaction / Comment(s): jhas never recieved any blood transfusion Past Psychological History: No Psychological Hx Reported Smoking Status: Never smoker Past Alcohol Use History: Occasional Past Drug Use History: None Reported - Past Family History Mother Family Medical History: Coronary Artery Disease (CAD), CVA/TIA, Hypertension, Myocardial Infarction ([place]) Father Family Medical History: Congestive Heart Failure (CHF), Coronary Artery Disease (CAD), Osteoarthritis (OA) Additional Family Medical History / Comment(s): cabg Medications and Allergies Home Medications Medication Instructions Recorded Confirmed Type Aspirin 325 mg PO DAILY 03/27/18 03/15/22 History Ezetimibe/Simvastatin [Vytorin 1 tab PO HS 03/27/18 03/15/22 History 10-40 mg Tablet] ALPRAZolam [Xanax] 0.25 mg PO DAILY PRN 03/01/22 03/15/22 History Metoprolol Succinate [Metoprolol 25 mg PO BID 03/01/22 03/15/22 History Succinate ER] Propafenone [Rythmol] 150 mg PO Q8H PRN 03/01/22 03/15/22 History Naproxen [Naprosyn] 250 mg PO TID-W/MEALS PRN 03/15/22 03/15/22 History Allergies Allergy/AdvReac Type Severity Reaction Status Date / Time No Known Allergies Allergy Verified 03/15/22 11:24 Physical Exam Vitals: Vital Signs Temp Pulse Resp BP Pulse Ox 03/15/22 09:08 62 19 136/79 100 03/15/22 08:45 99 03/15/22 06:55 97.9 F 76 18 113/73 99 Intake and Output 03/14/22 03/15/22 03/15/22 22:59 06:59 14:59 Other: Weight 95.254 kg Results 03/15/22 07:33 03/15/22 07:33 Cardiac Enzymes 03/15/22 03/15/22 03/15/22 Range/Units 07:33 07:33 10:41 AST 33 (17-59) U/L Troponin I <0.012 <0.012 (0.000-0.034) ng/mL Coagulation 03/15/22 Range/Units 07:33 PT 10.5 (9.0-12.0) sec APTT 25.4 (22.0-30.0) sec CBC 03/15/22 Range/Units 07:33 WBC 7.7 (3.8-10.6) k/uL RBC 4.90 (4.30-5.90) m/uL Hgb 15.0 (13.0-17.5) gm/dL Hct 43.9 (39.0-53.0) % Plt Count 230 (150-450) k/uL Comprehensive Metabolic Panel 03/15/22 Range/Units 07:33 Sodium 141 (137-145) mmol/L Potassium 4.1 (3.5-5.1) mmol/L Chloride 103 (98-107) mmol/L Carbon Dioxide 30 (22-30) mmol/L BUN 22 H (9-20) mg/dL Creatinine 0.82 (0.66-1.25) mg/dL Glucose 115 H (74-99) mg/dL Calcium 9.6 (8.4-10.2) mg/dL AST 33 (17-59) U/L ALT 34 (4-49) U/L Alkaline Phosphatase 63 (38-126) U/L Total Protein 7.7 (6.3-8.2) g/dL Albumin 5.0 (3.5-5.0) g/dL Current Medications Generic Name Dose Route Start Last Admin Trade Name Freq PRN Reason Stop Dose Admin Alprazolam 0.25 mg 03/15/22 08:44 Alprazolam 0.25 Mg Tab PO DAILY PRN Anxiety Aspirin 325 mg 03/16/22 09:00 Aspirin 325 Mg Tab PO DAILY [facility] Atorvastatin Calcium 20 mg 03/15/22 21:00 Atorvastatin 20 Mg Tab PO HS [facility] Ezetimibe 10 mg 03/15/22 21:00 Ezetimibe 10 Mg Tab PO HS [facility] Metoprolol Succinate 25 mg 03/15/22 21:00 Metoprolol Succinate (Er) 25 Mg Tab.Er.24h PO HS [facility] Nitroglycerin 1 inch 03/15/22 12:00 03/15/22 11:00 Nitroglycerin Oint 1 Inch/Gm Packet TOPICAL Not Given Q6HR [facility] Nitroglycerin 0.4 mg 03/15/22 08:45 Nitroglycerin Sl Tabs 0.4 Mg Tab SUBLINGUAL Q5M PRN Chest Pain Sodium Chloride 10 ml 03/15/22 09:00 03/15/22 09:13 Sodium Chloride 0.9% Flush 10 Ml Syringe IV 10 ml BID [facility] Administration Intake and Output 03/14/22 03/15/22 03/15/22 22:59 06:59 14:59 Other: Weight 95.254 kg 03/15/22 07:33 03/15/22 07:33
[2022-03-15] MEDS ORDERED: NON FORMULARY DRUG (Ezetimibe/Simvastatin [Vytorin 10-40 Mg Tablet] 1 EACH Tablet) PO SCH (21:00)
[2022-03-15] MEDS: EZETIMIBE 10 MG TAB PO SCH ×2 (21:34→21:36)
[2022-03-15] MEDS: ATORVASTATIN 20 MG TAB PO SCH ×2 (21:34→21:36)
[2022-03-15] MEDS: METOPROLOL SUCCINATE (ER) 25 MG TAB.ER.24H PO SCH (21:34)
[2022-03-16] MEDS: NITROGLYCERIN OINT 1 INCH/GM PACKET TOPICAL SCH ×2 (00:07→06:20)
--- NOTE | 2022-03-16 00:38 | P.HPIM ---
History of Present Illness H&P Date: 03/15/22 Chief Complaint: Chest heaviness Patient is a 61-year-old male with known history of paroxysmal atrial fibrillation on aspirin, hypertension, hyperlipidemia presented to ER with complaints of mid retrosternal chest discomfort. Patient states that he felt heaviness in the chest and woke him up from sleep. Since then he has been having dull constant pain. No associated nausea or vomiting. Patient states that he was also having left lower extremity pain/numbness and noticed some swelling at home. Patient states that since his last stress test has been having more episodes of palpitations and chest pain. Patient states that he concerned that his prior stress test may have damaged his electrical activity in the heart. 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 tach for 11 beats. Patient was also placed on event monitor. Denied any cough or sputum production. No fever no chills. Any recent illnesses. Patient was previously seen in the hospital in December 2021. At the time echocardiogram showed normal ejection fraction and mild MR. Patient underwent C ardiolite stress test showed no reversible ischemia. CTA chest on admission showed no evidence of PE. EKG showed sinus rhythm. Chest x-ray showed no acute process. No significant change from prior. Laboratory data showed WBC 7.7 hemoglobin 15.0 and platelets 213 D-dimer is 2.18 Sodium 141 potassium 4.1 chloride 103 bicarb is 30 BUN 2020 creatinine 0.82 and blood sugar is 115 Troponin x3 negative proBNP 109 lipase 84 and amylase 55. Review of Systems Abdomen: Patient denied nausea vomiting and diarrhea and abdominal pain. Cardiovascular: Patient denies any chest pain or short of breath no palpitations. Respiratory: patient denied any cough or sputum production. No shortness of breath Neurologic: Patient denied any numbness or tingling headache. Musculoskeletal: Patient denies any complaints of joint swelling or deformity. Skin: Negative Psychiatric: Negative Endocrine: No heat or cold intolerance. No recent weight gain. Genitourinary: No dysuria or hematuria. All other 14 point ROS negative except the above Past Medical History Past Medical History: Atrial Fibrillation, Hyperlipidemia Additional Past Medical History / Comment(s): fist episode of afib and again in History of Any Multi-Drug Resistant Organisms: None Reported Past Surgical History: Tonsillectomy Additional Past Surgical History / Comment(s): right hand surgery d/t dupuytrens , rt eye lid sx for chalazion (cyst) Past Anesthesia/Blood Transfusion Reactions: No Reported Reaction Additional Past Anesthesia/Blood Transfusion Reaction / Comment(s): jhas never recieved any blood transfusion Past Psychological History: No Psychological Hx Reported Smoking Status: Never smoker Past Alcohol Use History: Occasional Past Drug Use History: None Reported - Past Family History Mother Family Medical History: Coronary Artery Disease (CAD), CVA/TIA, Hypertension, Myocardial Infarction (MS) Father Family Medical History: Congestive Heart Failure (CHF), Coronary Artery Disease (CAD), Osteoarthritis (OA) Additional Family Medical History / Comment(s): cabg Medications and Allergies Home Medications Medication Instructions Recorded Confirmed Type Aspirin 325 mg PO DAILY 03/27/18 03/15/22 History Ezetimibe/Simvastatin [Vytorin 1 tab PO HS 03/27/18 03/15/22 History 10-40 mg Tablet] ALPRAZolam [Xanax] 0.25 mg PO DAILY PRN 03/01/22 03/15/22 History Metoprolol Succinate [Metoprolol 25 mg PO BID 03/01/22 03/15/22 History Succinate ER] Propafenone [Rythmol] 150 mg PO Q8H PRN 03/01/22 03/15/22 History Naproxen [Naprosyn] 250 mg PO TID-W/MEALS PRN 03/15/22 03/15/22 History Allergies Allergy/AdvReac Type Severity Reaction Status Date / Time No Known Allergies Allergy Verified 03/15/22 11:24 Physical Exam Vitals: Vital Signs Temp Pulse Resp BP Pulse Ox 03/15/22 09:08 62 19 136/79 100 03/15/22 06:55 97.9 F 76 18 113/73 99 Intake and Output 03/14/22 03/15/22 03/15/22 22:59 06:59 14:59 Other: Weight 95.254 kg PHYSICAL EXAMINATION: Patient is lying in the bed comfortably, no acute distress, awake alert and oriented.. HEENT: Normocephalic. Neck is supple. Pupils reactive. Nostrils clear. Oral cavity is moist. Neck reveals no JVD, carotid bruits, or thyromegaly. CHEST EXAMINATION: Trachea is central. Symmetrical expansion. Lung bello clear to auscultation and percussion. CARDIAC: Normal S1, S2 with no gallops. No murmurs ABDOMEN: Soft. Bowel sounds normal. No organomegaly. No abdominal bruits. Extremities: reveal no edema. No clubbing or cyanosis Neurologically awake, alert, oriented x3 with well-coordinated movements. No focal deficits noted Skin: No rash or skin lesions. Psychiatric: Cooperative. Nonsuicidal Musculoskeletal: No joint swelling or deformity. Normal range of motion. Results CBC & Chem 7: 03/15/22 07:33 03/15/22 07:33 Labs: Abnormal Lab Results - Last 24 Hours (Table) 03/15/22 03/15/22 03/15/22 Range/Units 07:33 07:33 07:33 Lymphocytes # 0.9 L (1.0-4.8) k/uL D-Dimer 2.18 H (<0.60) mg/L FEU BUN 22 H (9-20) mg/dL Glucose 115 H (74-99) mg/dL Thrombosis Risk Factor Assmnt - DVT/VTE Prophylaxis DVT/VTE Prophylaxis: Pharmacologic Prophylaxis ordered Assessment and Plan Assessment: Chest heaviness/tightness. Ruled out ACS. EKG and troponin x3 negative. Paroxysmal atrial fibrillation currently on aspirin at home Hypertension Hyperlipidemia Elevated D-dimer level with CTA negative for PE. Anxiety DVT prophylaxis Plan: Patient will be started back on metoprolol, Rythmol and aspirin. Continue with statins. Cardiac telemetry monitoring. Cardiology has seen the patient. No further work-up recommended at this time. Follow-up overnight.
--- NOTE | 2022-03-16 08:31 | US ---
EXAMINATION TYPE: US venous doppler duplex LE LT DATE OF EXAM: 03/16/2022 12:25 AM COMPARISON: NONE CLINICAL HISTORY: calf pain. Left calf pain x 2 weeks. No hx of DVT, takes an aspirin daily. SIDE PERFORMED: Left TECHNIQUE: The lower extremity deep venous system is examined utilizing real time linear array sonog hunter with graded compression, doppler sonography and color-flow sonography. VESSELS IMAGED: Common Femoral Vein Deep Femoral Vein Greater Saphenous Vein * Femoral Vein Popliteal Vein Small Saphenous Vein * Proximal Calf Veins (* superficial vessels) Left Leg: No evidence for DVT Grayscale, color doppler, spectral doppler imaging performed of the deep veins of the left lower extr emity. There is normal flow, compressibility, vascular waveforms. IMPRESSION: No ultrasound evidence for acute DVT in the left lower extremity.
[2022-03-16] MEDS: ASPIRIN 325 MG TAB PO SCH (08:39)
[2022-03-16 11:33] VITALS: BMI 26.9
--- NOTE | 2022-03-16 11:44 | CA ---
Transthoracic Echo Report Name: Eliceo Marie Age: 61 Gender: M : 1960 Exam Date: 03/16/2022 10:54 Exam Location: [place] [facility] Ht (in): 74 Wt (lb): 210 Ordering Physician: Bhupinder Truong MD ([id number]) Attending/Referring Phys: Alexi SCHREIBER Electronics Technology Instructor Ivelisse Brunner RDCS Procedure CPT: Indications: Chest Pain Cardiac Hx: Technical Quality: Fair Contrast 1: Total Dose (mL): Contrast 2: Total Dose (mL): MEASUREMENTS (Male / Female) Normal Values 2D ECHO LV Diastolic Diameter PLAX 4.2 cm 4.2 - 5.9 / 3.9 - 5.3 cm LV Systolic Diameter PLAX 2.7 cm IVS Diastolic Thickness 1.3 cm 0.6 - 1.0 / 0.6 - 0.9 cm LVPW Diastolic Thickness 1.4 cm 0.6 - 1.0 / 0.6 - 0.9 cm LV Relative Wall Thickness 0.6 RV Internal Dim ED PLAX 3.3 cm LA Volume 47.3 cm??? 18 - 58 / 22 - 52 cm??? M-MODE Aortic Root Diameter MM 2.9 cm LA Systolic Diameter MM 3.3 cm LA Ao Ratio MM 1.1 AV Cusp Separation MM 2.2 cm DOPPLER AV Peak Velocity 137.0 cm/s AV Peak Gradient 7.5 mmHg LVOT Peak Velocity 99.2 cm/s LVOT Peak Gradient 3.9 mmHg MV Area PHT 5.7 cm??? Mitral E Point Velocity 100.6 cm/s Mitral A Point Velocity 37.3 cm/s Mitral E to A Ratio 2.7 MV Deceleration Time 132.8 ms MV E' Velocity 17.2 cm/s Mitral E to MV E' Ratio 5.8 TR Peak Velocity 310.3 cm/s TR Peak Gradient 38.5 mmHg Right Ventricular Systolic Press 41.2 mmHg FINDINGS Left Ventricle Mildly increased left ventricular wall thickness. Normal left ventricular systolic function with no obvious regional wall motion abnormalities. Left ventricular ejection fraction is estimated at 55-60 %. Right Ventricle Normal right ventricular size and function. Mild pulmonary hypertension. Right Atrium Normal right atrial size. Left Atrium Normal left atrial size. Mitral Valve Structurally normal mitral valve. No mitral stenosis, or prolapse. Trace to mild mitral regurgitation. Aortic Valve No aortic valve stenosis or regurgitation. Tricuspid Valve Structurally normal tricuspid valve. Mild tricuspid regurgitation. Pulmonic Valve Trace pulmonic regurgitation. Pericardium No pericardial effusion. Aorta Normal size aortic root and proximal ascending aorta. CONCLUSIONS Normal LV systolic function Mild pulmonary hypertension Previewed by: Dr. Bhupinder Truong MD (Electronically Signed) Final Date: 16 March 2022 11:43
[2022-03-16 11:50] LABS: Chol/HDL Ratio 3.33 Ratio; LDL Cholesterol,Calculated 94.6 mg/dL (0.0-131.0)
[2022-03-16] MEDS ORDERED: BISMUTH SUBSALICYLATE 4,192 MG/240 ML BOTTLE PO PRN (16:45)
[2022-03-16 20:50] VITALS: RESP 17
[2022-03-16] MEDS: METOPROLOL SUCCINATE (ER) 25 MG TAB.ER.24H PO SCH (20:56)
[2022-03-16] MEDS: EZETIMIBE 10 MG TAB PO SCH (20:56)
[2022-03-16] MEDS: ATORVASTATIN 20 MG TAB PO SCH (20:56)
[2022-03-16] MEDS ORDERED: KETOROLAC 15 MG/ML 1 ML VIAL IVP STA (21:04)
--- NOTE | 2022-03-16 23:03 | P.PN ---
Subjective Progress Note Date: 03/16/22 Patient is a 61-year-old male with known history of paroxysmal atrial fibrillation on aspirin, hypertension, hyperlipidemia presented to ER with complaints of mid retrosternal chest discomfort. Patient states that he felt heaviness in the chest and woke him up from sleep. Since then he has been having dull constant pain. No associated nausea or vomiting. Patient states that he was also having left lower extremity pain/numbness and noticed some swelling at home. Patient states that since his last stress test has been having more episodes of palpitations and chest pain. Patient states that he co ncerned that his prior stress test may have damaged his electrical activity in the heart. 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 tach for 11 beats. Patient was also placed on event monitor. Denied any cough or sputum production. No fever no chills. Any recent illnesses. Patient was previously seen in the hospital in December 2021. At the time echocardiogram showed normal ejection fraction and mild MR. Patient underwent Cardiolite stress test showed no reversible ischemia. CTA chest on admission showed no evidence of PE. EKG showed sinus rhythm. Chest x-ray showed no acute process. No significant change from prior. Laboratory data showed WBC 7.7 hemoglobin 15.0 and platelets 213 D-dimer is 2.18 Sodium 141 potassium 4.1 chloride 103 bicarb is 30 BUN 2020 creatinine 0.82 and blood sugar is 115 Troponin x3 negative proBNP 109 lipase 84 and amylase 55. 03/16/2022 Patient is currently sitting on side of the bed. Still complains of heaviness in the chest. No nausea or vomiting. No headache or dizziness or lightheadedness. Blood pressure is 123/73 pulse 71 respirations 16 pulse ox 1% on room air. Repeat EKG this morning showed normal sinus rhythm. Left lower extremity duplex scan is negative for DVT. Patient was seen by cardiology and 2D echocardiogram was ordered. Troponin x3 negative. LDL 94.6 and TSH level is 1.43 Current medications reviewed. Objective - Vital Signs Vital signs: Vital Signs Temp 97.7 F 03/16/22 19:00 Pulse 63 03/16/22 20:00 Resp 17 03/16/22 19:00 BP 125/73 03/16/22 19:00 Pulse Ox 99 03/16/22 19:00 FiO2 Intake & Output 03/16/22 03/16/22 03/17/22 06:59 18:59 06:59 Intake Total 500 Balance 500 Weight 95.254 kg Intake: Oral 500 Other: Voiding Method Toilet # Voids 2 2 2 - Exam PHYSICAL EXAMINATION: Patient is lying in the bed comfortably, no acute distress, awake alert and oriented.. HEENT: Normocephalic. Neck is supple. Pupils reactive. Nostrils clear. Oral cavity is moist. Neck reveals no JVD, carotid bruits, or thyromegaly. CHEST EXAMINATION: Trachea is central. Symmetrical expansion. Lung bello clear to auscultation and percussion. CARDIAC: Normal S1, S2 with no gallops. No murmurs ABDOMEN: Soft. Bowel sounds normal. No organomegaly. No abdominal bruits. Extremities: reveal no edema. No clubbing or cyanosis Neurologically awake, alert, oriented x3 with well-coordinated movements. No focal deficits noted Skin: No rash or skin lesions. Psychiatric: Cooperative. Nonsuicidal Musculoskeletal: No joint swelling or deformity. Normal range of motion. - Labs CBC & Chem 7: 03/15/22 07:33 03/15/22 07:33 Assessment and Plan Assessment: Chest heaviness/tightness. Ruled out ACS. EKG and troponin x3 negative. Paroxysmal atrial fibrillation currently on aspirin at home Hypertension Hyperlipidemia Elevated D-dimer level with CTA negative for PE. Anxiety DVT prophylaxis Plan: Patient will be started back on metoprolol, Rythmol and aspirin. Continue with statins. Cardiac telemetry monitoring. Cardiology has seen the patient. Patient states that he does continues to have tightness feeling in the chest. Possible musculoskeletal versus anxiety related. 2D echocardiogram was ordered. Continue symptomatic management and follow-up closely. Time with Patient: Greater than 30
[2022-03-17 04:04] VITALS: PULSE 69
[2022-03-17] MEDS: ASPIRIN 325 MG TAB PO SCH (08:07)
[2022-03-17 10:19] VITALS: BP 123/75; TEMP 97.8
[2022-03-17 11:37] LABS: Basophils # (A) 0.03 X 10*3/uL (0.00-0.10); Basophils % (A) 0.5 %; Eosinophils # (A) 0.06 X 10*3/uL (0.04-0.35); Eosinophils % (A) 0.9 %; HCT 42.9 % (39.6-50.0); HGB 14.3 g/dL (13.0-17.0); Immature Grans, Automated 0.3 %; Lymphocytes # (A) 1.14 X 10*3/uL (0.90-5.00); Lymphocytes % (A) 17.2 %; MCH 29.9 pg (27.0-32.0); MCHC 33.3 g/dL (32.0-37.0); MCV 89.7 fL (80.0-97.0); Mean Platelet Volume 10.9 fL (9.5-12.2); Monocytes % (A) 7.5 %; NRBC Per 100 WBC 0 /100 WBCS (0.0-0.0); Neutrophils # (A) 4.89 X 10*3/uL (1.80-7.70); Neutrophils % (A) 73.6 %; Platelet Count 254 X 10*3/uL (140-440); RBC 4.78 X 10*6/uL (4.40-5.60); RDW 12.4 % (11.5-14.5); WBC 6.64 X 10*3/uL (4.50-10.00)
[2022-03-17 11:55] LABS: African American GFR (CKD) 108.4 (60.0-200.0); Anion Gap 11.1 mmol/L (10.00-18.00); BUN/Creat Ratio 29.58 Ratio (12.00-20.00); Blood Urea Nitrogen 25.5 mg/dL (9.0-27.0); Calcium 9.8 mg/dL (8.7-10.3); Carbon Dioxide 27.6 mmol/L (20.0-27.5); Non-African American GFR(CKD) 93.5 (60.0-200.0)
--- NOTE | 2022-03-18 11:07 | CONS ---
RAMSEY Fenton is a 61-year-old gentleman with history of paroxysmal atrial fibrillation and atypical chest pain, who is admitted to hospital with chest discomfort. He apparently had been seen by hardware developer at [facility] and underwent extensive workup including an echocardiogram, a stress test that showed stress-induced ischemia and went on to have a CT angiogram that apparently did not reveal significant obstructive CAD. He comes back in complaining of chest discomfort. This seems atypical. EKG did not reveal ischemic changes and cardiac enzymes have been negative. At the time of my evaluation this morning, the patient has had many questions about what is going on with him. I answered them to the best of my ability. The patient did not seem totally reassured with all the explanations he received so far. He is concerned that he is having a lot of ectopy. I reviewed his telemetry data meticulously and I have not found any abnormal rhythm. He is currently on Rythmol, metoprolol 25 b.i.d., Vytorin, aspirin, and Xanax on a p.r.n. basis. He is on nitroglycerin paste, which I am going to stop. The patient was supposed to have an echo done in the outpatient setup and wishes to have it done. While here I will see if I can get it done today, I will. PHYSICAL EXAMINATION: GENERAL: Comfortable at rest. VITAL SIGNS: Stable. NECK: There is no jugular venous distention. CHEST: Good air entry bilaterally. HEART: First and second heart sounds. No gallop. No murmur. ABDOMEN: Soft. EXTREMITIES: Did not reveal any edema. Peripheral pulses are felt. LABS: Hemoglobin of 15, platelet count 230. Potassium 4.1, creatinine 0.8. Troponins are negative. BNP normal. D-dimer was elevated. The patient had a CT scan of the chest that was negative for pulmonary embolism. Patient had a venous duplex study that is negative for DVT. ASSESSMENT: 1. Atypical chest pain. 2. Paroxysmal atrial fibrillation. 3. Palpitations. I am ordering an echocardiogram. I reviewed telemetry data at length and requested the nurse to convey to the patient that we did not find any cardiac arrhythmia. I am going to stop the nitro paste that he is on. We should be able to discharge him home after the echo is done with outpatient followup with his own hardware developer at [facility]. MMODL / IJN: [id number] /
== END 2022-03-17 12:17 | disposition home or self-care (01) ==
LOC: EC 06:50 → 6NMEDSUR 08:45
PROVIDERS: ADMIT Internal Medicine; ATTEND Internal Medicine
DX: R07.89 Other chest pain (principal); R00.2 Palpitations; R79.1 Abnormal coagulation profile; F41.9 Anxiety disorder, unspecified; E78.5 Hyperlipidemia, unspecified; I48.0 Paroxysmal atrial fibrillation; I10 Essential (primary) hypertension; I25.10 Atherosclerotic heart disease of native coronary artery without angina pectoris; M79.605 Pain in left leg; R20.0 Anesthesia of skin; Z79.82 Long term (current) use of aspirin; Z79.899 Other long term (current) drug therapy; Z82.49 Family history of ischemic heart disease and other diseases of the circulatory system; Z82.3 Family history of stroke; Z82.61 Family history of arthritis
CPT/HCPCS: 96374; 99285; 36415; 94760 ×2; 93306; 85379; 83880; 80061; 80053; 80048; 84443; 82150; 83690; 83735; 84484; 85025 ×2; 85610; 85730; 71046; 93971; 71275; G0378 ×3; J1885; Q9967

== ENCOUNTER 2022-04-02 00:49 | Emergency (ER) | payer BC ==
[2022-04-02 01:03] VITALS: TEMP 97.8
[2022-04-02 01:22] LABS: Basophils % (A) 1 %; Eosinophils # (A) 0.1 k/uL (0-0.7); Eosinophils % (A) 2 %; HCT 42.8 % (39.0-53.0); HGB 14.8 gm/dL (13.0-17.5); Lymphocytes # (A) 1.7 k/uL (1.0-4.8); Lymphocytes % (A) 22 %; MCHC 34.5 g/dL (31.0-37.0); MCV 89.9 fL (80.0-100.0); Mean Platelet Volume 8.2; Monocytes # (A) 0.5 k/uL (0-1.0); Monocytes % (A) 6 %; Neutrophils # (A) 5.3 k/uL (1.3-7.7); Neutrophils % (A) 69 %; Platelet Count 217 k/uL (150-450); RBC 4.76 m/uL (4.30-5.90); RDW 12.2 % (11.5-15.5); WBC 7.8 k/uL (3.8-10.6)
[2022-04-02 01:31] LABS: ALT 32 U/L (4-49); AST 30 U/L (17-59); African American GFR (CKD) >90 (>60 ml/min/1.73 sqM); Albumin 4.8 g/dL (3.5-5.0); Alkaline Phosphatase 74 U/L (38-126); Anion Gap 7 mmol/L; Blood Urea Nitrogen 26 mg/dL (9-20); Carbon Dioxide 32 mmol/L (22-30); Chloride 102 mmol/L (98-107); Glucose 89 mg/dL (74-99); Non-African American GFR(CKD) >90 (>60 ml/min/1.73 sqM); Potassium 4.5 mmol/L (3.5-5.1); Sodium 141 mmol/L (137-145); Total Bilirubin 0.8 mg/dL (0.2-1.3); Total Protein 7.4 g/dL (6.3-8.2)
[2022-04-02 01:55] LABS: Partial Thromboplastin Time 24.6 sec (22.0-30.0); Prothrombin Time 10.3 sec (9.0-12.0)
[2022-04-02 02:21] VITALS: PULSE 65
--- NOTE | 2022-04-02 02:36 | XR ---
EXAMINATION TYPE: XR chest 2V DATE OF EXAM: 04/02/2022 COMPARISON: NONE HISTORY: Chest pain 03/15/2022 TECHNIQUE: FINDINGS: Heart is normal. Lungs are clear. Diaphragm is normal. Bony thorax appears normal. There ar e chest leads. IMPRESSION: Normal chest. No change.
--- NOTE | 2022-04-02 03:49 | ED ---
General Adult HPI - General Chief complaint: Chest Pain Stated complaint: Chest Pain Time Seen by Provider: 04/02/22 02:12 Source: patient Mode of arrival: ambulatory Limitations: no limitations - History of Present Illness Initial comments: This is a 61-year-old male with a past medical history including hypertension presents emergency department for chest discomfort. The patient perseverated and continued to state multiple times that ever since he had a stress test done several months before he has had chest pain intermittently and frequently. The patient described him being in the hospital approximately 3-4 times over last several months for this continued chest pain but stated that before the stress test he received, he never was in the hospital more than 3 times over 10 years. The patient stated that he did not have a shortest breath or difficulty in breathing but stated the chest pain was on the left side of his chest that radi ated across the right side. The patient did state that it started yesterday and he had associated left leg pain. The patient was seen and evaluated emergency department for similar episode several weeks ago where a full workup including CTA of the chest and duplex ultrasound was obtained and was all negative. The patient himself was resting in bed comfortably without any further acute pain or distress at this time. - Related Data Home Medications Medication Instructions Recorded Confirmed Aspirin 325 mg PO DAILY 03/27/18 03/15/22 Ezetimibe/Simvastatin [Vytorin 1 tab PO HS 03/27/18 03/15/22 10-40 mg Tablet] ALPRAZolam [Xanax] 0.25 mg PO DAILY PRN 03/01/22 03/15/22 Metoprolol Succinate [Metoprolol 25 mg PO BID 03/01/22 03/15/22 Succinate ER] Propafenone [Rythmol] 150 mg PO Q8H PRN 03/01/22 03/15/22 Allergies Allergy/AdvReac Type Severity Reaction Status Date / Time No Known Allergies Allergy Verified 04/02/22 01:00 Review of Systems ROS Statement: Those systems with pertinent positive or pertinent negative responses have been documented in the HPI. ROS Other: All systems not noted in ROS Statement are negative. Past Medical History Past Medical History: Atrial Fibrillation, Hyperlipidemia Additional Past Medical History / Comment(s): fist episode of afib and again in History of Any Multi-Drug Resistant Organisms: None Reported Past Surgical History: Tonsillectomy Additional Past Surgical History / Comment(s): right hand surgery d/t dupuytrens , rt eye lid sx for chalazion (cyst) Past Anesthesia/Blood Transfusion Reactions: No Reported Reaction Additional Past Anesthesia/Blood Transfusion Reaction / Comment(s): josr never recieved any blood transfusion Past Psychological History: No Psychological Hx Reported Smoking Status: Never smoker Past Alcohol Use History: Occasional Past Drug Use History: None Reported - Past Family History Mother Family Medical History: Coronary Artery Disease (CAD), CVA/TIA, Hypertension, Myocardial Infarction (DC) Father Family Medical History: Congestive Heart Failure (CHF), Coronary Artery Disease (CAD), Osteoarthritis (OA) Additional Family Medical History / Comment(s): cabg General Exam Limitations: no limitations General appearance: alert, in no apparent distress Head exam: Present: atraumatic, normocephalic, normal inspection Eye exam: Present: normal appearance, PERRL Pupils: Present: normal accommodation ENT exam: Present: normal exam, normal oropharynx, mucous membranes moist Neck exam: Present: normal inspection, full ROM Respiratory exam: Present: normal lung sounds bilaterally Cardiovascular Exam: Present: regular rate, normal rhythm, normal heart sounds GI/Abdominal exam: Present: soft, normal bowel sounds Extremities exam: Present: normal inspection, full ROM Back exam: Present: normal inspection, full ROM Neurological exam: Present: alert, oriented X3, CN II-XII intact Psychiatric exam: Present: normal affect, normal mood Skin exam: Present: warm, dry Course Vital Signs 04/02/22 04/02/22 01:00 02:17 Temperature 97.8 F Pulse Rate 62 65 Respiratory 18 16 Rate Blood Pressure 146/88 126/84 O2 Sat by Pulse 98 98 Oximetry EKG Findings - EKG Comments: EKG Findings:: An EKG was obtained and was interpreted by myself showing a rate of 63, AZ interval 137, QRS duration 91 and QTC of 394. This EKG showed a normal sinus rhythm with no ST segment elevation or depression noted. Medical Decision Making - Medical Decision Making Was pt. sent in by a medical professional or institution (, PA, [employer] [facility], urgent care, hospital, or correction...) When possible be specific @ -No Did you speak to anyone other than the patient for history (EMS, parent, family, police, friend...)? What history was obtained from this source @ -No Did you review nursing and triage notes (agree or disagree)? Why? @ -I reviewed and agree with nursing and triage notes Were old charts reviewed (outside hosp., previous admission, EMS record, old E KG, old radiological studies, urgent care reports/EKG's, correction records)? Report findings @ -No old charts were reviewed Differential Diagnosis (chest pain, altered mental status, abdominal pain women, abdominal pain men, vaginal bleeding, weakness, fever, dyspnea, syncope, headache, dizziness, GI bleed, back pain, seizure, CVA, palpatations, mental hea lth)? @ -ACS, PE, pneumonia EKG interpreted by me (3pts min.). @ -As above X-rays interpreted by me (1pt min.). @ -Chest x-ray was obtained and was interpreted by myself showing no acute process. CT interpreted by me (1pt min.). @ -None done U/S interpreted by me (1pt. min.). @ -None done What testing was considered but not performed or refused? (CT, X-rays, U/S, labs)? Why? @ -None What meds were considered but not given or refused? Why? @ -None Did you discuss the management of the patient with other professionals (professionals i.e. , PA, [employer] [facility], lab, RT, psych nurse, social media intern, harp maker, teacher, [place] police officer, senior case manager)? Give summary @ -No Was smoking cessation discussed for >3mins.? @ -No Was critical care preformed (if so, how long)? @ -No Were there social determinants of health that impacted care today? How? (Homelessness, low income, unemployed, alcoholism, drug addiction, transportation, low edu. Level, literacy, decrease access to med. care, long term, rehab)? @ -No Was there de-escalation of care discussed even if they declined (Discuss DNR or withdrawal of care, Hospice)? DNR status @ -No What co-morbidities impacted this encounter? (DM, HTN, Smoking, COPD, CAD, Cancer, CVA, ARF, Chemo, Hep., AIDS, mental health diagnosis, sleep apnea, morbid obesity)? @ -Previous hypertension, loop recorder currently in place Was patient admitted / discharged? Hospital course, mention meds given and route, prescriptions, significant lab abnormalities, going to OR and other pertinent info. @ -The patient was seen and evaluated emergency department. Physical exam, the patient was resting in bed without any acute distress. Vital signs were stable. All laboratory workup was within normal limits and the patient did request a repeat d-dimer level and d-dimer was decreased from his previous level of 2.18. The patient had a negative workup and was deemed stable for discharge. The patient was advised to follow-up with his manager clinical services and primary care physician for further workup and evaluation. The patient was also advised report back to the emergency department if he had worsening chest pain with shortness of breath. The patient was agreeable to this and all discretions were answered. The patient was discharged home in stable condition. Undiagnosed new problem with uncertain prognosis? @ -No Drug Therapy requiring intensive monitoring for toxicity (Heparin, Nitro, Insulin, Cardizem)? @ -No Were any procedures done? @ -No Diagnosis/symptom? @ -Chest pain, NOS Acute, or Chronic, or Acute on Chronic? @ -Acute on chronic Uncomplicated (without systemic symptoms) or Complicated (systemic symptoms)? @ -Uncomplicated Side effects of treatment? @ -No Exacerbation, Progression, or Severe Exacerbation? @ -No Poses a threat to life or bodily function? How? (Chest pain, USA, DC, pneumonia, PE, COPD, DKA, ARF, appy, cholecystitis, CVA, Diverticulitis, Homicidal, Suicidal, threat to staff... and all critical care pts) @ -No - Lab Data Result diagrams: 04/02/22 01:12 04/02/22 01:12 Lab Results 04/02/22 04/02/22 04/02/22 Range/Units 01:12 01:12 01:12 WBC 7.8 (3.8-10.6) k/uL RBC 4.76 (4.30-5.90) m/uL Hgb 14.8 (13.0-17.5) gm/dL Hct 42.8 (39.0-53.0) % MCV 89.9 (80.0-100.0) fL MCH 31.0 (25.0-35.0) pg MCHC 34.5 (31.0-37.0) g/dL RDW 12.2 (11.5-15.5) % Plt Count 217 (150-450) k/uL MPV 8.2 Neutrophils % 69 % Lymphocytes % 22 % Monocytes % 6 % Eosinophils % 2 % Basophils % 1 % Neutrophils # 5.3 (1.3-7.7) k/uL Lymphocytes # 1.7 (1.0-4.8) k/uL Monocytes # 0.5 (0-1.0) k/uL Eosinophils # 0.1 (0-0.7) k/uL Basophils # 0.0 (0-0.2) k/uL PT 10.3 (9.0-12.0) sec INR 1.0 (<1.2) APTT 24.6 (22.0-30.0) sec D-Dimer (<0.60) mg/L FEU Sodium 141 (137-145) mmol/L Potassium 4.5 (3.5-5.1) mmol/L Chloride 102 (98-107) mmol/L Carbon Dioxide 32 H (22-30) mmol/L Anion Gap 7 mmol/L BUN 26 H (9-20) mg/dL Creatinine 0.75 (0.66-1.25) mg/dL Est GFR (CKD-EPI)AfAm >90 (>60 ml/min/1.73 sqM) Est GFR (CKD-EPI)NonAf >90 (>60 ml/min/1.73 sqM) Glucose 89 (74-99) mg/dL Calcium 10.0 (8.4-10.2) mg/dL Total Bilirubin 0.8 (0.2-1.3) mg/dL AST 30 (17-59) U/L ALT 32 (4-49) U/L Alkaline Phosphatase 74 (38-126) U/L Troponin I (0.000-0.034) ng/mL Total Protein 7.4 (6.3-8.2) g/dL Albumin 4.8 (3.5-5.0) g/dL 04/02/22 04/02/22 Range/Units 01:12 01:12 WBC (3.8-10.6) k/uL RBC (4.30-5.90) m/uL Hgb (13.0-17.5) gm/dL Hct (39.0-53.0) % MCV (80.0-100.0) fL MCH (25.0-35.0) pg MCHC (31.0-37.0) g/dL RDW (11.5-15.5) % Plt Count (150-450) k/uL MPV Neutrophils % % Lymphocytes % % Monocytes % % Eosinophils % % Basophils % % Neutrophils # (1.3-7.7) k/uL Lymphocytes # (1.0-4.8) k/uL Monocytes # (0-1.0) k/uL Eosinophils # (0-0.7) k/uL Basophils # (0-0.2) k/uL PT (9.0-12.0) sec INR (<1.2) APTT (22.0-30.0) sec D-Dimer 1.25 H (<0.60) mg/L FEU Sodium (137-145) mmol/L Potassium (3.5-5.1) mmol/L Chloride (98-107) mmol/L Carbon Dioxide (22-30) mmol/L Anion Gap mmol/L BUN (9-20) mg/dL Creatinine (0.66-1.25) mg/dL Est GFR (CKD-EPI)AfAm (>60 ml/min/1.73 sqM) Est GFR (CKD-EPI)NonAf (>60 ml/min/1.73 sqM) Glucose (74-99) mg/dL Calcium (8.4-10.2) mg/dL Total Bilirubin (0.2-1.3) mg/dL AST (17-59) U/L ALT (4-49) U/L Alkaline Phosphatase (38-126) U/L Troponin I <0.012 (0.000-0.034) ng/mL Total Protein (6.3-8.2) g/dL Albumin (3.5-5.0) g/dL Disposition Clinical Impression: Chest pain Disposition: HOME SELF-CARE Condition: Stable Instructions (If sedation given, give patient instructions): Chest Pain (ED) Is patient prescribed a controlled substance at d/c from ED?: No Referrals: Carlos A Armas DO [Primary Care Provider] - 1-2 days Time of Disposition: 03:50
[2022-04-02 04:00] VITALS: BP 130/75; RESP 18
== END 2022-04-02 04:07 | disposition home or self-care (01) ==
LOC: EC 00:49
DX: R07.9 Chest pain, unspecified (principal); I48.91 Unspecified atrial fibrillation; E78.5 Hyperlipidemia, unspecified; Z79.899 Other long term (current) drug therapy
CPT/HCPCS: 36415; 71046; 80053; 84484; 85025; 85379; 85610; 85730; 93005; 99285

== ENCOUNTER → 2022-04-17 | Outpatient (CLI) | payer BC ==
--- NOTE | 2022-04-17 11:31 | MR ---
EXAMINATION TYPE: MR brain wo con DATE OF EXAM: 04/17/2022 COMPARISON: NONE HISTORY: Danial numbness, worse in left leg and foot TECHNIQUE: Multiplanar, multisequence imaging of the brain and brainstem is performed without IV cont rast. FINDINGS: Diffusion weighted images demonstrate no evidence of a recent infarct or other diffusion abnormality. There is no extraaxial fluid collection or significant white matter signal abnormality. The ventricu lar system and cisternal spaces are normal in size and appearance for patient's age. The brain volum e is age appropriate. T2 Star weighted images show no suspicious intraparenchymal blood product. Midline structures demonstrate normal morphology. The craniocervical junction appears within normal limits. Normal vascular flow voids are present. The visualized sinuses are clear and the globes are i ntact. Patchy fluid signal right mastoid air cells. IMPRESSION: No MRI evidence for recent infarct. No significant white matter changes. Patchy fluid rig ht mastoid air cells raises concern for right-sided mastoiditis, correlate clinically. Otherwise unre markable study.
== END | disposition home or self-care (01) ==
LOC: RADMRIMAIN 08:13
PROVIDERS: ATTEND Family Medicine
DX: H74.8X1 Other specified disorders of right middle ear and mastoid (principal); R20.2 Paresthesia of skin
CPT/HCPCS: 70551